=== PATIENT | female | born 1975 | race Caucasian/White ===

== ENCOUNTER 2019-04-06 18:15 | Emergency (ER) | payer MEDICAID, SELFPAY ==
[2019-04-06 18:16] VITALS: BP 164/110; PULSE 81; RESP 16; TEMP 36.1; O2SAT 99; BMI 35.4
--- NOTE | 2019-04-06 18:26 | CT_ITS ---
STUDY: CT ABDOMEN AND PELVIS WITHOUT CONTRAST REASON FOR EXAM: Female, 44 years old. Nausea and vomiting. RADIATION DOSAGE (If Supplied By Facility): CTDIvol = ( 17.16 ) mGy, DLP = ( 806.04 ) mGycm TECHNIQUE: Transaxial images were obtained from the dome of the diaphragm to the symphysis pubis without oral contrast, and without intravenous contrast. Sagittal and coronal images were reconstructed. Individualized dose optimization techniques were used for this CT. COMPARISON: None. FINDINGS: Evaluation of the abdominal viscera is limited in the absence of intravenous contrast. The visualized lung bases are clear. The visualized portions of the heart and pericardium are within normal limits. The patient is status post cholecystectomy. The liver demonstrates an unremarkable unenhanced appearance. The spleen is normal in size. The pancreas demonstrates an unremarkable unenhanced appearance. The adrenal glands are within normal limits. There are no renal or ureteral stones. There is no hydronephrosis. Normal visualized stomach. There is no bowel obstruction or inflammation. The appendix is visualized and appears normal. The aorta is normal in caliber. There is no abdominal or pelvic free air, free fluid, fluid collection or lymphadenopathy. There are no destructive osseous lesions. CT/Abdomen/Pelvis without Cont IMPRESSION: No acute abdominal or pelvic pathology demonstrated on this noncontrast CT. Electronically Signed: Dominic Davalos, at 19:48 EDT Tel , Service support ,
--- NOTE | 2019-04-06 18:34 | ED.VISSUMM ---
- ER Visit Summary Date of Service: 04/06/19 Chief Complaint: [Nausea and vomiting] History of Present Illness: The patient is a 44 F [presents to the emergency department with 3-day history of nausea and vomiting. Patient complaining of dry heaves. Patient complaining of diffuse abdominal discomfort mostly to the lower abdomen however. Patient's also had some discomfort in the epigastric region. Patient denies any diarrhea. She denies any fever. She denies urinary symptoms. Her last menstrual period was about 2 weeks ago although her periods are irregular and it is not unusual for her to go this long between periods. Patient has history of migraines and does not have a headache at this time. Patient has history of x2 and cholecystectomy.] Physical Examination: [HEENT-PERRLA, EOMI. Cranial nerves II through XII grossly intact. TMs clear. Mucous membranes moist. No adenopathy. Cardiovascular-regular rate and rhythm without murmur or ectopy Lungs-clear to auscultation, chest wall stable without crepitus or subcu emphysema Abdomen-normoactive bowel sounds, soft. Patient has some mild diffuse tenderness over lower abdomen. Patient has some mild discomfort in the epigastric region. There is no rebound, rigidity, cranial signs. Extremities-intact ?4, normal range of motion, normal pulses, atraumatic] Test Results: [CBC with differential showed a white count 7.5, hemoglobin 14, hematocrit 43, placed 256. Chemistries unremarkable. Lipase was 70. Urinalysis normal. hCG was negative. CT scan of the flank showed nothing acute.] Emergency Department Course and Treatment: [Patient was given Zofran 4 mg IV as well as Bentyl 20 mg IM. She continued complaints of mild nausea and was given Phenergan 12.5 mill grams IV.] Treatment Plan: [Patient will be given a prescription for Phenergan and advised to follow-up with her primary care physician within next 3 to 5 days.] Disposition: [Discharged home stable condition] Impression: [Abdominal pain Nausea vomiting] This note was generated with [employer] dictation software. It may contain incorrect words, spelling, and punctuation that were not noted in review of the chart prior to signing ED Disposition - Plan for ED Patient: Referrals: Ashly Doyle MD [Primary Care Provider] -
[2019-04-06] MEDS: 0.9% Normal Saline 1,000 ML 125 ML IV (18:38)
[2019-04-06] MEDS: Dicyclomine 20 MG/2 ML Vial IM (18:38)
[2019-04-06] MEDS: Ondansetron 4 MG/2 ML Vial IV (18:47)
[2019-04-06 19:03] LABS: Absolute Lymphocyte Count 1.26 X10^3/uL (0.83-4.51); Absolute Neutrophil Count 5.6 X10^3/uL (2.0-7.7); Basophil# 0.04 X10^3/uL; Basophil% 0.5 % (0-1); Eosinophil# 0.04 X10^3/uL; Eosinophils% 0.5 % (0-5); Hematocrit 42.8 % (37-47); Hemoglobin 13.9 g/dL (12.0-15.0); Lymphocyte # 1.26 X10^3/ul (4.0); Lymphocyte % 16.9 % (19-41); Mean Corp Hgb Conc 32.5 g/dL (32-36); Mean Corpuscular Hgb 28.6 pg (27.0-32.0); Mean Corpuscular Volume 88.1 fL (81-99); Mean Platelet Vol. 9.4 fl (6.2-12.0); Monocyte# 0.49 X10^3/uL; Monocyte% 6.6 % (0-10); NRBC Flagged by Analyzer 0 % (0-5); Neutrophil % 75.1 % (47-70); Platelet Count 256 K/mm3 (150-450); RBC Distribution Width CV 15.3 % (11.6-14.6); RBC Distribution Width SD 49.9 fl (35.1-43.9); Red Blood Count 4.86 M/mm3 (4.2-5.4); White Blood Count 7.5 K/mm3 (4.4-11.0)
[2019-04-06 19:09] LABS: Internal QC Validated? YES +Cl - CLEAR BKGD; Pregnancy, Serum, hCG Quali. NEGATIVE Negative
[2019-04-06 19:14] LABS: Anion Gap 3 (5-15); BUN 11 mg/dL (7-18); BUN/Creat Ratio 13.5 RATIO (10-20); Calcium,Total 9.4 mg/dL (8.5-10.1); Chloride 104 mmol/L (98-107); Creatinine, Serum 0.82 mg/dL (0.55-1.02); EST Glomerular Filtration Rate 81 mL/min (>60); Est Glom Filt Rate - Afr Amer 98 mL/min (>60); Estimated Creatinine Clearance 73.18 ml/min; Glucose 92 mg/dL (74-106); Lipase 70 U/L (73-393); Potassium 3.8 mmol/L (3.5-5.1); Sodium Level 136 mmol/L (136-145)
[2019-04-06 19:17] VITALS: RESP 16
[2019-04-06 20:32] LABS: Mucous, Urine 0 SEEN /hpf (<or=2+); Red Blood Cells-Urine 0 SEEN /hpf (0-5)
[2019-04-06 20:34] LABS: Color, Urine Yellow (Yellow); Glucose, Dipstick Normal (Normal); Ketone-Dipstick Negative (Negative); Leukocyte Esterase-Dipstick 100 /ul (Negative); Nitrite-Dipstick Negative (Negative); Occult Blood-Urine Negative /ul (Negative); Protein-Dipstick Negative (Negative); Urine Bilirubin Dipstick Negative (Negative); Urine Clarity Clear (Clear); Urine Urobilinogen Normal (Normal)
[2019-04-06 20:40] LABS: White Blood Cells 0-5 SEEN /hpf (0-5)
[2019-04-06 20:41] LABS: Bacteria RARE /hpf (None Seen); Squamous Epithelial Cells - UA 0-5 SEEN /hpf (5-10); Trichomonas 0-5 SEEN /hpf (None Seen)
--- NOTE | 2019-04-06 20:47 | ED.DEP ---
ED Disposition - Plan for ED Patient: Instructions: VOMITING (7y-Adult), ABDOMINAL PAIN, Unknown Cause, (Female) Prescriptions: proMETHazine tablet [Phenergan] 25 mg PO Q6H PRN PRN #10 tab PRN Reason: Nausea Prescription Printed Referrals: Ashly Doyle MD [Primary Care Provider] - 3-5 Days
[2019-04-06] MEDS: proMETHazine 25 MG/ML Syringe 12.5 MG IV (20:55)
[2019-04-06 21:01] VITALS: BP 159/61; PULSE 69; RESP 20; O2SAT 100
== END 2019-04-06 21:03 | disposition home or self-care (01) ==
LOC: ED 18:40
PROVIDERS: Emergency Provider Emergency Medicine; Family Provider Internal Medicine; PCP Internal Medicine
DX: R10.30 Lower abdominal pain, unspecified (principal); R10.13 Epigastric pain; R11.2 Nausea with vomiting, unspecified; N92.6 Irregular menstruation, unspecified; G43.909 Migraine, unspecified, not intractable, without status migrainosus; Z90.49 Acquired absence of other specified parts of digestive tract; Z72.0 Tobacco use
CPT/HCPCS: 74176; 80048; 81001; 83690; 84703; 85025; 96361; 96372; 96374; 96375; 99285; J7030; J2405

== ENCOUNTER 2023-04-18 19:33 | Emergency (ER) | payer SELFPAY ==
[2023-04-18 19:33] VITALS: BP 192/108; PULSE 95; RESP 26; TEMP 37.1; O2SAT 96; BMI 32.8
--- NOTE | 2023-04-18 20:23 | CT_ITS ---
INDICATION: Lower abdominal pain EXAMINATION: CT ABDOMEN AND PELVIS WITH CONTRAST - CT Abdomen And Pelvis W/ Contrast Injection TECHNIQUE: Helically acquired images were obtained of the abdomen and pelvis following IV contrast. A radiation dose optimization technique was used for this scan. IV Contrast dosage and agent: 100 cc [id number] Oral contrast: None. COMPARISON: 04/06/2019 FINDINGS: LOWER CHEST: Lung bases are clear. No cardiomegaly or pericardial effusion. LIVER: Homogeneous. No focal mass. GALLBLADDER AND BILIARY TREE: Cholecystectomy. No intra- or extrahepatic biliary ductal dilation. PANCREAS: No focal cystic or solid mass. SPLEEN: Normal size without focal cystic or solid mass. ADRENAL GLANDS: No nodules. KIDNEYS AND URETERS: Normal renal size and position. No hydronephrosis. PERITONEUM: No ascites or free air. BOWEL: Normal appendix. No stomach or bowel distension. No focal inflammatory change. LYMPH NODES: No enlarged mesenteric or retroperitoneal lymph nodes. VESSELS: Aorta is non-dilated. URINARY BLADDER: Minimally distended. REPRODUCTIVE ORGANS: No pelvic masses. Essure device in place. ABDOMINAL WALL: No discrete abdominal or pelvic wall hernia. BONES: No acute or aggressive abnormality. CT/Abdomen/Pelvis W IV Cont ONLY IMPRESSION: No acute findings in the abdomen or pelvis. Electronically Signed: Edgar Castillo MD at 21:27 EDT ,
[2023-04-18 20:33] LABS: Absolute Lymphocyte Count 1.86 X10^3/uL (0.83-4.51); Absolute Neutrophil Count 6.7 X10^3/uL (2.0-7.7); Basophil# 0.07 X10^3/uL; Basophil% 0.7 % (0-1); Eosinophil# 0.03 X10^3/uL; Eosinophils% 0.3 % (0-5); Hematocrit 41.1 % (37-47); Hemoglobin 13.7 g/dL (12.0-15.0); Lymphocyte # 1.86 X10^3/ul (0.83-4.51); Lymphocyte % 19.9 % (19-41); Mean Corp Hgb Conc 33.3 g/dL (32-36); Mean Corpuscular Hgb 30.8 pg (27.0-32.0); Mean Corpuscular Volume 92.4 fL (81-99); Monocyte# 0.61 X10^3/uL; Monocyte% 6.5 % (0-10); NRBC Flagged by Analyzer 0 % (0-5); Neutrophil # 6.74 X10^3/uL (2.7-7.7); Neutrophil % 72.2 % (47-70); Platelet Count 249 K/mm3 (150-450); RBC Distribution Width CV 13.9 % (11.6-14.6); RBC Distribution Width SD 47.3 fl (35.1-43.9); Red Blood Count 4.45 M/mm3 (4.2-5.4); White Blood Count 9.4 K/mm3 (4.4-11.0)
[2023-04-18] MEDS: Morphine 4 MG/ML Syringe IV (20:33)
[2023-04-18] MEDS: Ondansetron 4 MG/2 ML Vial IV (20:33)
[2023-04-18 20:47] LABS: Bacteria 0 SEEN /hpf (None Seen); Mucous, Urine 0 SEEN /hpf (<or=2+); Squamous Epithelial Cells - UA 0 SEEN /hpf (5-10); White Blood Cells 0 SEEN /hpf (0-5)
[2023-04-18 20:51] LABS: AST(SGOT) 21 U/L (15-37); Alanine Aminotransfer ALT/SGPT 27 U/L (13-56); Alkaline Phosphatase 78 U/L (45-117); Anion Gap 6 (5-15); BUN 15 mg/dL (7-18); Calcium,Total 9.8 mg/dL (8.5-10.1); Chloride 104 mmol/L (98-107); Creatinine, Serum 0.88 mg/dL (0.55-1.02); EST Glomerular Filtration Rate 73 mL/min (>60); Est Glom Filt Rate - Afr Amer 88 mL/min (>60); Estimated Creatinine Clearance 65.38 ml/min; Globulin 4.2 g/dL (2.2-4.2); Glucose 88 mg/dL (74-106); Potassium 3.5 mmol/L (3.5-5.1); Protein, Total 8.2 g/dL (6.4-8.2); Sodium Level 140 mmol/L (136-145)
[2023-04-18 20:53] LABS: Valproic Acid (Depakene) Level < 3 ug/mL (50-100)
[2023-04-18 20:53] LABS: Color, Urine Yellow (Yellow); Glucose, Dipstick Normal (Normal); Ketone-Dipstick Negative (Negative); Leukocyte Esterase-Dipstick Negative /ul (Negative); Nitrite-Dipstick Negative (Negative); Occult Blood-Urine 25 /ul (Negative); Protein-Dipstick Negative (Negative); Urine Bilirubin Dipstick Negative (Negative); Urine Clarity Sl. Cloudy (Clear); Urine Urobilinogen Normal (Normal)
[2023-04-18 20:59] LABS: Amorphous Sediment 1+; Red Blood Cells-Urine 0-5 SEEN /hpf (0-5)
--- NOTE | 2023-04-25 08:41 | EX.ED.DYSGE1 ---
HPI History of Present Illness Chief Complaint: General Illness Narrative Narrative: 48-year-old female stating she feels generally unwell. She had some lower back pain and some constipation. She admits to fever and chills as well at home. She states onset was last Sunday. She is not doing any better. Presents for evaluation. [facility] Medical History Back pain Hypertension Migraine headache Mood disorder Tobacco abuse Medical History no medical history Home Medications ondansetron 4 mg disintegrating tablet 4 mg PO Q8H PRN PRN Nausea #10 tabs 04/18/23 [Rx Last Taken Unknown] ondansetron HCl 8 mg tablet 8 mg PO Q8H PRN nausea and vomiting #10 tabs 04/24/23 [Rx Last Taken Unknown] pantoprazole 40 mg tablet,delayed release (Protonix) 40 mg PO DAILY #30 tabs 04/24/23 [Rx Last Taken Unknown] Allergy/AdvReac Type Severity Reaction Status Date / Time naproxen AdvReac Nausea Verified 04/22/23 20:42 Social History Smoking Status: Current some day smoker tobacco type: cigarettes alcohol intake: never substance use type: does not use ROS ROS ED Constitutional Constitutional ED: Reports chills and fever(s) Eyes Eyes: Denies change in vision or diplopia ENT ENT ED: Denies rhinorrhea or sore throat Cardiovascular Cardiovascular: Denies chest pain or palpitations Respiratory/Chest Respiratory/Chest: Denies cough Gastrointestinal Gastrointestinal: Reports abdominal pain, nausea and vomiting Genitourinary Genitourinary ED: Denies dysuria or hematuria Musculoskeletal Musculoskeletal: Reports back pain and myalgias Integumentary Denies abscess Neurologic Neurologic: Reports headache(s); Denies paresthesias or weakness Psychiatric Psychiatric: Denies anxiety or depression Endocrine Endocrinology: Denies cold intolerance or heat intolerance Hematologic/Lymphatic Hematologic/Lymphatic: Reports systems reviewed and no addt'l complaints, except as documented EXAM Physical Exam Const General Appearance ED: NAD; Negative for pallor HEENT Reports moist mucous membranes Eyes PERRL and EOMs intact bilaterally Chest Wall inspection of chest normal Resp normal respiratory effort Effort and Inspection: Negative for retractions Cardio regular rate and regular rhythm GI normal to inspection, nondistended, normoactive bowel sounds Back/Spine no CVA tenderness Neuro oriented x3 and CN's II-XII intact bilaterally Sensorium / Orientation: alert Motor Exam: strength 5/5 throughout Psych mental status grossly normal Skin no rashes or lesions noted General Skin Exam: Negative for jaundice or pallor MDM MDM MDM Narrative Medical decision making narrative: Patient presenting with lower back pain, generalized weakness, fevers and chills. Differential includes viral syndrome, UTI, diverticulitis, colitis. Patient medicated and lab work was obtained. Lab work all within normal limits. UA negative for infection. There is ketones. Patient had CT of the abdomen pelvis with IV contrast which was negative. At this point I feel the patient can be discharged home. Return precautions were discussed. Impression: 1. Fever?chills 2. Abdominal pain 3. Nausea/vomit Radiography Diagnostic Testing: Clinical Impression(s) from Imaging Studies Abdomen/Pelvis CT 04/18/23 20:23 IMPRESSION: No acute findings in the abdomen or pelvis. Electronically Signed: Edgar Castillo MD at 21:27 EDT Reading Location ID and State: [address] [place] [address] Tel , Service support , Discharge Plan Triage Chief Complaint: General Illness ED Provider: Chase Roberto Dx/Rx/DC Orders Instructions: ED Gastroenteritis, Viral (Adult) Prescriptions: New ondansetron 4 mg tablet,disintegrating 4 mg PO Q8H PRN PRN (Reason: Nausea) Qty: 10 0RF No Action pantoprazole [Protonix] 40 mg tablet,delayed release (DR/EC) 40 mg PO DAILY Qty: 30 0RF ondansetron HCl 8 mg tablet 8 mg PO Q8H PRN (Reason: nausea and vomiting) Qty: 10 0RF Primary Care Provider: Ashly Doyle Referrals: Ashly Doyle MD [Primary Care Provider] - Disposition Disposition: Home, Self Care Discharge Date/Time: 04/18/23 22:07
== END 2023-04-18 22:07 | disposition home or self-care (01) ==
PROVIDERS: Emergency Provider Student in an Organized Health Care Education/Training Program; PCP Internal Medicine; Visit Provider Student in an Organized Health Care Education/Training Program
DX: R10.9 Unspecified abdominal pain (principal); I10 Essential (primary) hypertension; M54.50 Low back pain, unspecified; R50.9 Fever, unspecified; R11.2 Nausea with vomiting, unspecified; F17.210 Nicotine dependence, cigarettes, uncomplicated
CPT/HCPCS: 74177; 80053; 80164; 81001; 85025; 87428; 96374; 96375; 99282; Q9967; A4216; J2405

== ENCOUNTER 2023-04-22 20:42 | Inpatient (IN) | payer SELFPAY ==
[2023-04-22 20:43] VITALS: BP 172/111; PULSE 85; RESP 16; TEMP 36.6; O2SAT 100
[2023-04-22 21:53] LABS: Absolute Neutrophil Count 10.8 X10^3/uL (2.0-7.7); Basophil# 0.08 X10^3/uL; Basophil% 0.6 % (0-1); Eosinophil# 0.08 X10^3/uL; Eosinophils% 0.6 % (0-5); Hematocrit 41.8 % (37-47); Hemoglobin 14.4 g/dL (12.0-15.0); Lymphocyte % 15.9 % (19-41); Mean Corp Hgb Conc 34.4 g/dL (32-36); Mean Corpuscular Hgb 32.1 pg (27.0-32.0); Mean Corpuscular Volume 93.1 fL (81-99); Mean Platelet Vol. 10.2 fl (6.2-12.0); Monocyte# 0.66 X10^3/uL; Monocyte% 4.8 % (0-10); NRBC Flagged by Analyzer 0 % (0-5); Neutrophil # 10.75 X10^3/uL (2.7-7.7); Neutrophil % 77.7 % (47-70); Platelet Count 265 K/mm3 (150-450); RBC Distribution Width CV 14.2 % (11.6-14.6); RBC Distribution Width SD 48.9 fl (35.1-43.9); Red Blood Count 4.49 M/mm3 (4.2-5.4); White Blood Count 13.8 K/mm3 (4.4-11.0)
--- NOTE | 2023-04-22 22:19 | RAD_ITS ---
INDICATION: NG Insertion EXAMINATION/TECHNIQUE: X-RAY - XR Abdomen 1 View COMPARISON: Chest x-ray September 30, 2013. FINDINGS: Abdominal x-ray centered at the diaphragm shows the nasogastric tube tip at the level of the diaphragm. Consider advancing 13 cm to get the proximal side port into the stomach. Surgical clips right upper quadrant from cholecystectomy. Visualized lungs are clear. Upper abdomen shows no abnormal soft tissue calcifications, free air, abnormally distended air-filled bowel loops or other evidence of acute intra-abdominal pathology. Lateral curvature lumbar spine, convex right. No fracture or focal osseous lesion. Prominent right-sided osteophytes T11-12 level. RAD/Abdomen Single View (Portable) IMPRESSION: Enteric tube tip not within the stomach. Advanced 13 cm to have the proximal side port in the stomach. Electronically Signed: Ambrosio Kuhn DO at 22:50 EDT ,
[2023-04-22 22:26] LABS: Internal QC Validated? YES +Cl - CLEAR BKGD; Pregnancy, Serum, hCG Quali. NEGATIVE Negative
--- NOTE | 2023-04-22 22:29 | EX.ED.DYSGE1 ---
HPI History of Present Illness Chief Complaint: Nausea/Vomiting Detail of Chief Complaint: Vomiting blood Informant: patient Onset/Context/Timing Onset: Today Context: Sudden Onset Timing: Intermittent Quality: Patient reports she is vomited several times and is noted brown bloody coff Location: Upper GI Current Severity: Moderate Maximum Severity: Moderate Worsened by: Patient apparently is on an anti-inflammatory Relieved by: Nothing Associated Symptoms Associated Symptoms: Heartburn Narrative Narrative: Patient is a 48-year-old woman who presents with nausea and vomiting. She was seen on April 06 for nausea and vomiting. She denies black or maroon-colored stool. She states every time that she has vomited it has a dark brown appearance and has what appears to be coffee grounds. She also complains of epigastric pain. She states she does not feel well. She denies fever, chills night sweats. She denies headache, visual, ocular auditory symptoms. She does report chronic rhinorrhea. She denies sore throat. She does have a slight cough. The cough is nonproductive. She has a chronic cough. She has no chest pain. She denies back pain. She denies dysuria, frequency, urgency or hematuria. She is not on an anticoag. Prior similar symptoms: Yes (Nausea and vomiting April 06 without blood) Recent Illness/Hospitalization: Yes [facility] Home Medications divalproex 500 mg tablet,delayed release (Depakote) 400 mg PO QHS 09/30/13 [History Last Taken Unknown] gabapentin 600 mg tablet (Neurontin) 1,200 mg PO QHS 09/30/13 [History Last Taken Unknown] paroxetine HCl 10 mg tablet (Paxil) 30 mg PO DAILY 09/30/13 [History Last Taken Unknown] propranolol 120 mg capsule,24 hr,extended release (Inderal LA) 120 mg PO QHS 09/30/13 [History Last Taken Unknown] baclofen 20 mg tablet 20 mg PO BID 08/02/14 [History Last Taken Unknown] duloxetine 20 mg capsule,delayed release 20 mg PO DAILY 08/02/14 [History Last Taken Unknown] ondansetron 8 mg disintegrating tablet (Zofran ODT) 8 mg PO Q8H PRN PRN Nausea ##6 08/02/14 [Rx Last Taken Unknown] sumatriptan succinate 100 mg tablet (Imitrex) 100 mg PO .X1 PRN PRN Headache 08/02/14 [History Last Taken Unknown] tramadol 50 mg tablet 50 mg PO BID 08/02/14 [History Last Taken Unknown] dicyclomine 20 mg tablet (Bentyl) 20 mg PO 4X/DAY PRN Abdominal Pain #20 tabs 09/01/14 [Rx Last Taken Unknown] promethazine 25 mg rectal suppository (Promethegan) 25 mg RECTAL Q6H PRN PRN Nausea ##6 09/01/14 [Rx Last Taken Unknown] promethazine 25 mg tablet 25 mg PO Q6H PRN PRN Nausea ##10 09/01/14 [Rx Last Taken Unknown] Ibuprofen [Motrin] 800 mg PO TID #30 tabs 09/28/14 [Rx Last Taken Unknown] hydrocodone-acetaminophen 5-325mg 5mg-325mg 1 - 2 tab PO Q4H PRN PRN Pain ##20 09/28/14 [Rx Last Taken Unknown] penicillin V potassium 500 mg tablet 500 mg PO 4X/DAY #40 tabs 09/28/14 [Rx Last Taken Unknown] promethazine 25 mg rectal suppository (Promethegan) 25 mg RECTAL Q6H PRN PRN Nausea ##20 11/02/14 [Rx Last Taken Unknown] promethazine 25 mg tablet 25 mg PO Q6H PRN PRN Nausea ##20 11/02/14 [Rx Last Taken Unknown] tramadol 50 mg tablet 50 mg PO Q4H PRN PRN Pain #20 tabs 06/27/15 [Rx Last Taken Unknown] promethazine 25 mg tablet 25 mg PO Q6H PRN PRN Nausea #10 tabs 04/06/19 [Rx Last Taken Unknown] ondansetron 4 mg disintegrating tablet 4 mg PO Q8H PRN PRN Nausea #10 tabs 04/18/23 [Rx Last Taken Unknown] Allergy/AdvReac Type Severity Reaction Status Date / Time naproxen AdvReac Nausea Verified 04/22/23 20:42 Social History Smoking Status: Current some day smoker tobacco type: cigarettes ROS ROS ED Constitutional Constitutional ED: Denies chills, fever(s), subjective, sweats or weight loss Eyes Eyes: Denies blurry vision or diplopia ENT ENT ED: Reports rhinorrhea; Denies ear pain or sore throat Cardiovascular Cardiovascular: Denies chest pain, orthopnea, palpitations or paroxysmal nocturnal dyspnea Respiratory/Chest Respiratory/Chest: Reports cough; Denies dyspnea, dyspnea on exertion, orthopnea or paroxysmal nocturnal dyspnea Gastrointestinal Gastrointestinal: Reports abdominal pain, nausea, vomiting and other Details: Coffee-ground appearing emesis ; Denies constipation, diarrhea or melena Genitourinary Genitourinary ED: Denies dysuria, hematuria or urinary frequency Musculoskeletal Musculoskeletal: Denies arthralgias or back pain Integumentary Denies abscess or rash Neurologic Neurologic: Denies headache(s), paresthesias or weakness Psychiatric Psychiatric: Denies anxiety or depression Endocrine Endocrinology: Denies cold intolerance or heat intolerance Hematologic/Lymphatic Hematologic/Lymphatic: Reports systems reviewed and no addt'l complaints, except as documented EXAM Physical Exam Const Vital Signs: 04/22/23 20:43 Temperature 98 F Temperature Source Temporal Pulse Rate 85 Respiratory Rate 16 Blood Pressure 172/111 H Blood Pressure Mean 131 Pulse Ox 100 Positive well nourished and well developed General Appearance ED: well developed and NAD; Negative for cyanotic, diaphoretic or pallor HEENT Reports moist mucous membranes HEENT Narrative: Head is normocephalic and atraumatic. Ears normal. Posterior pharynx unremarkable. Nares positive with slight clear drainage Eyes PERRL and EOMs intact bilaterally General Eye ED: Negative for pale conjunctiva or scleral icterus Neck no lymphadenopathy, supple and no JVD Chest Wall inspection of chest normal and palpation of chest normal Resp normal respiratory effort and clear to auscultation bilaterally Cardio regular rate, regular rhythm, S1 normal heart sound, S2 normal heart sound and no murmurs GI non-distended and no masses; Negative for non-tender or hepatosplenomegaly Inspection: Negative for abdominal distention Auscultation: hypoactive bowel sounds Palpation: soft and tender epigastric Back/Spine no CVA tenderness Thoracic Spine / Upper Back: Negative for thoracic spinal tenderness Lumbar Spine / Lower Back: Negative for lumbar spinal tenderness Extremity normal to inspection General Extremety ED: Negative for edema or tenderness General Extremity: Negative for edema Neuro oriented x3, CN's II-XII intact bilaterally and no sensory deficits noted Sensorium / Orientation: alert Psych Mood & Affect: depressed Skin no rashes or lesions noted, no wounds and skin turgor normal Skin Narrative: Patient is slightly diaphoretic. General Skin Exam: Negative for jaundice or pallor MDM MDM MDM Narrative Medical decision making narrative: Patient has emesis bag with coffee-ground emesis noted. Will drop NG. Patient still has coffee-ground bloody material noted. X-ray reveals NG needs to be inserted another 10 cm. Patient received IV Protonix. CBC and BMP were obtained as well as type and screen. was done per nurse protocol which was negative. Lab Data Attestation: I reviewed the patient's lab results. Lab results narrative: CBC is remarked for slight elevated white count which may be due to stress and vomiting. H&H is at patient's baseline Labs: Laboratory Results - last 24 hr 04/22/23 21:42 WBC 13.8 H RBC 4.49 Hgb 14.4 Hct 41.8 MCV 93.1 MCH 32.1 H MCHC 34.4 RDW Std Deviation 48.9 H RDW Coeff of Samson 14.2 Plt Count 265 MPV 10.2 Immature Gran % (Auto) 0.400 Neut % (Auto) 77.7 H Lymph % (Auto) 15.9 L Frederick % (Auto) 4.8 Eos % (Auto) 0.6 Baso % (Auto) 0.6 Absolute Neuts (auto) 10.8 H Absolute Lymphs (auto) 2.20 Nucleated RBC % 0 Sodium 137 Potassium 4.2 Chloride 106 Carbon Dioxide 23.0 Anion Gap 8 BUN 15 Creatinine 0.80 Est GFR (MDRD) Af Amer 99 Est GFR (MDRD) Non-Af 82 BUN/Creatinine Ratio 18.8 Glucose 118 H Calcium 9.9 Total Bilirubin 0.40 AST 48 H ALT 27 Alkaline Phosphatase 71 Total Protein 8.1 Albumin 3.8 Globulin 4.3 H Albumin/Globulin Ratio 0.9 Serum , Qual NEGATIVE Radiography Diagnostic Testing: Clinical Impression(s) from Imaging Studies KUB X-Ray 04/22/23 22:19 IMPRESSION: Enteric tube tip not within the stomach. Advanced 13 cm to have the proximal side port in the stomach. Electronically Signed: Ambrosio Kuhn DO at 22:50 EDT , Treatment and Re-Evaluation :: This patient has coffee-ground emesis. will consult hospitalist for admission and for GI to see in the morning. Discharge Plan Triage Chief Complaint: Nausea/Vomiting ED Provider: Russell Brandon Dx/Rx/DC Orders Clinical Impression: Acute upper GI bleed, Nausea & vomiting, Hypertension Prescriptions: No Action gabapentin [Neurontin] 600 MG tablet 1,200 mg PO QHS paroxetine HCl [Paxil] 10 MG tablet 30 mg PO DAILY divalproex [Depakote] 500 MG tablet,delayed release (DR/EC) 400 mg PO QHS propranolol [Inderal LA] 120 MG capsule,extended release 24 hr 120 mg PO QHS tramadol 50 MG tablet 50 mg PO BID baclofen 20 MG tablet 20 mg PO BID duloxetine 20 MG capsule 20 mg PO DAILY sumatriptan succinate [Imitrex] 100 MG tablet 100 mg PO .X1 PRN PRN (Reason: Headache) ondansetron [Zofran ODT] 8 MG tablet,disintegrating 8 mg PO Q8H PRN PRN (Reason: Nausea) Qty: 6 0RF promethazine [Promethegan] 25 MG suppository 25 mg RECTAL Q6H PRN PRN (Reason: Nausea) Qty: 6 0RF dicyclomine [Bentyl] 20 MG tablet 20 mg PO 4X/DAY PRN (Reason: Abdominal Pain) Qty: 20 0RF promethazine 25 MG tablet 25 mg PO Q6H PRN PRN (Reason: Nausea) Qty: 10 0RF hydrocodone-acetaminophen 1 TABLET tablet 1 - 2 tab PO Q4H PRN PRN (Reason: Pain) Qty: 20 0RF penicillin V potassium 500 MG tablet 500 mg PO 4X/DAY Qty: 40 0RF Ibuprofen [Motrin] 800 MG tablet 800 mg PO TID Qty: 30 0RF promethazine 25 MG tablet 25 mg PO Q6H PRN PRN (Reason: Nausea) Qty: 20 0RF promethazine [Promethegan] 25 MG suppository 25 mg RECTAL Q6H PRN PRN (Reason: Nausea) Qty: 20 0RF tramadol 50 MG tablet 50 mg PO Q4H PRN PRN (Reason: Pain) Qty: 20 0RF promethazine 25 MG tablet 25 mg PO Q6H PRN PRN (Reason: Nausea) Qty: 10 0RF ondansetron 4 mg tablet,disintegrating 4 mg PO Q8H PRN PRN (Reason: Nausea) Qty: 10 0RF Primary Care Provider: Ashly Doyle Referrals: Ashly Doyle MD [Primary Care Provider] -
[2023-04-22 22:35] LABS: ALB/GLOB Ratio 0.9 RATIO (0.9-2.4); AST(SGOT) 48 U/L (15-37); Alanine Aminotransfer ALT/SGPT 27 U/L (13-56); Albumin, Serum 3.8 g/dL (3.2-5.0); Alkaline Phosphatase 71 U/L (45-117); Anion Gap 8 (5-15); BUN 15 mg/dL (7-18); BUN/Creat Ratio 18.8 RATIO (10-20); Calcium,Total 9.9 mg/dL (8.5-10.1); Chloride 106 mmol/L (98-107); EST Glomerular Filtration Rate 82 mL/min (>60); Est Glom Filt Rate - Afr Amer 99 mL/min (>60); Globulin 4.3 g/dL (2.2-4.2); Glucose 118 mg/dL (74-106); Potassium 4.2 mmol/L (3.5-5.1); Protein, Total 8.1 g/dL (6.4-8.2); Sodium Level 137 mmol/L (136-145)
--- NOTE | 2023-04-22 23:00 | CON.PCM.GI_ITS ---
HPI Consult Data Date of Consult: 04/22/23 HPI Narrative Reason for Consultation: Hematemesis HPI Narrative: AILYN MCINTYRE, is a 48 F who presents with intractable nausea and vomiting. She said after multiple episodes of nausea vomiting she developed several episodes of hematemesis. She states for about a week now she has had epigastric pain that radiates to her back and some nausea. She states she slowly progressed to the point where she developed vomiting today. She stated she started vomiting today at 7 PM and has vomited several times. She was not able to tell me how many times. She denies any alcohol use or drug use. She does smoke about half to 1 pack cigarettes daily. She has a history of previous abdominal pain with nausea and vomiting but had been doing well up until recently. She denied any melena or hematochezia. She denies any fever or chills. She has no headache and complains of chronic rhinorrhea but denies any other somatic symptoms. She is not anticoagulated at baseline. She had some similar symptoms earlier this month around April 06 but it abated and she had no hematemesis then. She had a CT in the ER on 04/06 04/18 and 04/22 that did not show any acute abnormalities. Vital signs on presentation show her temperature at 98, blood pressure is 147/115, heart rate was 70, respiratory rate is 16 and oxygen saturations are 100% on room air. CBC shows a mild leukocytosis with a white count of 13.8 and a left shift on her differential. Her hemoglobin is 14.4 which appears to be close to her baseline. Platelet counts are normal. Coags are normal her chemistry panel is overall unremarkable. AST is mildly elevated at 48 and ALT is normal. Bilirubin is normal. Her urine is positive for THC. [facility] Medical History (Updated 04/23/23 @ 11:[address] Yuan Amaro, DO) Back pain Hypertension Migraine headache Mood disorder Tobacco abuse Home Medications ondansetron 4 mg disintegrating tablet 4 mg PO Q8H PRN PRN Nausea #10 tabs 04/18/23 [Rx Last Taken Unknown] Allergy/AdvReac Type Severity Reaction Status Date / Time naproxen AdvReac Nausea Verified 04/22/23 20:42 Family History no significant family his Surgical History no surgical history Social History (Updated 04/22/23 @ 23:[address] Tameka Landers, DO) Smoking Status: Current some day smoker tobacco type: cigarettes alcohol intake: never substance use type: does not use ROS Constitutional Constitutional: Denies anorexia, change in weight, chills, fatigue, fever(s), malaise, night sweats, weakness or other Eyes Eyes: Denies blurry vision, change in eye color, change in vision, discharge from eye(s), double vision, erythema, eye pain, loss of vision or other ENT HEENT: Reports nasal discharge; Denies abnormal hearing, dysphagia, ear pain, epistaxis, headache(s), hearing loss, nasal congestion, post nasal drip, sinus pressure, sore throat or other Cardiovascular Cardiovascular: Denies chest pain, claudication, dyspnea on exertion, edema, lightheadedness, orthopnea, palpitations, paroxysmal nocturnal dyspnea, rapid heart rate, syncope or other Respiratory/Chest Respiratory/Chest: Reports cough; Denies dyspnea, excessive phlegm production, hemoptysis, productive cough, shortness of breath at rest, shortness of breath with exertion, wheezing or other Gastrointestinal Gastrointestinal: Reports abdominal pain, coffee ground emesis, dyspepsia, hematemesis, nausea and vomiting; Denies constipation, diarrhea, hematochezia, loose stools, melena or other Genitourinary Genitourinary: Denies burning urination, difficulty urinating, dysuria, hematuria, nocturia, urinary frequency, urinary hesitancy, urinary incontinence, urinary urgency or other Musculoskeletal Musculoskeletal: Reports back pain; Denies arthralgias, joint pain, joint stiffness, joint swelling, myalgias, neck pain or other Neurologic Neurologic: Denies abnormal gait, abnormal speech, confusion, disequilibrium, dizziness, focal weakness, headache(s), numbness, paresthesias, seizure-like activity, seizures, syncope, tingling, tremor(s) or other Psychiatric Psychiatric: Reports anxiety and depression; Denies homicidal ideation, suicidal ideation or other Endocrine Endocrinology: Denies change in body appearance, cold intolerance, excessive sweating, heat intolerance, polydipsia, polyuria or other Hematologic/Lymphatic Hematologic/Lymphatic: Denies anemia, easy bleeding, easy bruising, lymphadenopathy or other Allergic/Immunologic Allergic/Immunologic: Denies rhinitis, hives, eczemia, asthma or other Physical Exam Const alert, oriented x3 and well nourished; Negative for no apparent distress, average body habitus or healthy appearing General Appearance: cooperative HEENT normocephalic, head/scalp atraumatic, hearing grossly normal bilaterally and moist oral mucous membranes HEENT Narrative: Edentulous, Mallampati 2-3, no thrush Eyes PERRL, EOMs intact bilaterally and conjunctivae normal Eyes Narrative: No scleral icterus Neck no lymphadenopathy, supple and no JVD Neck Narrative: Trachea midline, no thyroid enlargement Resp normal respiratory effort, no retractions, no use of accessory muscles and clear to auscultation bilaterally Resp Narrative: Diminished but clear Auscultation: Negative for rales, rhonchi or wheezes Cardio regular rate, regular rhythm, S1 normal heart sound, S2 normal heart sound, no murmurs, no rub, no gallops and no clicks GI normal to inspection, nondistended, normoactive bowel sounds and soft to palpation GI Narrative: Tenderness in the epigastrium and also tenderness diffusely with her reaction being quite significant to very light palpation of her entire abdominal wall Extremity no clubbing, cyanosis or edema Extremity Narrative: Pedal pulses are 2+ Skin no rashes or lesions noted, no wounds, skin turgor normal, no jaundice, no petechiae and no mottling Neuro oriented x3, CN's II-XII intact bilaterally, moves all extremities and no focal motor deficits Speech: speech normal Psych Psych Narrative: Patient seems very anxious and agitated Lab / Micro Data 04/23/23 05:25 04/23/23 05:25 Labs: Laboratory Results - last 24 hr 04/22/23 21:42: WBC 13.8 H, RBC 4.49, Hgb 14.4, Hct 41.8, MCV 93.1, MCH 32.1 H, MCHC 34.4, RDW Std Deviation 48.9 H, RDW Coeff of Samson 14.2, Plt Count 265, MPV 10.2, Immature Gran % (Auto) 0.400, Neut % (Auto) 77.7 H, Lymph % (Auto) 15.9 L, [place] % (Auto) 4.8, Eos % (Auto) 0.6, Baso % (Auto) 0.6, Absolute Neuts (auto) 10.8 H, Absolute Lymphs (auto) 2.20, Nucleated RBC % 0, Sodium 137, Potassium 4.2, Chloride 106, Carbon Dioxide 23.0, Anion Gap 8, BUN 15, Creatinine 0.80, Est GFR (MDRD) Af Amer 99, Est GFR (MDRD) Non-Af 82, BUN/Creatinine Ratio 18.8, Glucose 118 H, Calcium 9.9, Total Bilirubin 0.40, AST 48 H, ALT 27, Alkaline Phosphatase 71, Total Protein 8.1, Albumin 3.8, Globulin 4.3 H, Albumin/Globulin Ratio 0.9, Lipase 80 H, Serum , Qual NEGATIVE 04/22/23 22:25: Blood Type A POSITIVE, Antibody Screen NEGATIVE 04/22/23 23:55: Hgb 13.9, PT 13.0, INR 1.0 04/22/23 23:56: Urine Color Yellow, Urine Clarity Clear, Urine pH 8.0, Ur Specific [place] 1.015, Urine Protein 30 H, Urine Glucose (UA) Normal, Urine Ketones 150 A*, Urine Occult Blood 25 H, Urine Nitrite Negative, Urine Bilirubin Negative, Urine Urobilinogen Normal, Ur Leukocyte Esterase Negative, Urine RBC 0-5 SEEN, Urine WBC 0-5 SEEN, Ur Squamous Epith Cells 0-5 SEEN, Amorphous Sediment 2+, Urine Bacteria 1+, Urine Mucus 0 SEEN, Urine Opiates Screen NEGATIVE, Urine Methadone Screen NEGATIVE, Ur Barbiturates Screen NEGATIVE, Ur P hencyclidine Scrn NEGATIVE, Ur Amphetamines Screen NEGATIVE, MDMA (Ecstasy) Screen NEGATIVE, U Benzodiazepines Scrn NEGATIVE, Urine Cocaine Screen NEGATIVE, U Cannabinoids Screen POSITIVE H, Ur Drug Screen Comment 04/23/23 05:25: WBC 9.6, RBC 4.35, Hgb 13.5, Hct 40.7, MCV 93.6, MCH 31.0, MCHC 33.2, RDW Std Deviation 48.0 H, RDW Coeff of Samson 14.0, Plt Count 254, MPV 10.4, Immature Gran % (Auto) 0.300, Neut % (Auto) 83.7 H, Lymph % (Auto) 12.7 L, [place] % (Auto) 3.0, Eos % (Auto) 0.0, Baso % (Auto) 0.3, Absolute Neuts (auto) 8.0 H, Absolute Lymphs (auto) 1.21, Nucleated RBC % 0, Sodium 140, Potassium 3.5, Chloride 108 H, Carbon Dioxide 25.0, Anion Gap 7, BUN 12, Creatinine 0.69, Estim Creat Clear Calc 87.04, Est GFR (MDRD) Af Amer 117, Est GFR (MDRD) Non-Af 97, BUN/Creatinine Ratio 17.3, Glucose 112 H, Calcium 9.1, Phosphorus 3.1, Magnesium 1.6, Total Bilirubin 0.40, AST 24, ALT 23, Alkaline Phosphatase 66, Total Protein 7.2, Albumin 3.4, Globulin 3.8, Albumin/Globulin Ratio 0.9 Micro: Microbiology 04/22/23 23:45 Gastric Fluid/Contents Gastric Occult Blood - Final Occult Blood Positive Radiology Impression KUB X-Ray 04/22/23 22:19 IMPRESSION: Enteric tube tip not within the stomach. Advanced 13 cm to have the proximal side port in the stomach. Electronically Signed: Ambrosio Kuhn DO at 22:50 EDT , Abdomen/Pelvis CT 04/22/23 23:16 IMPRESSION: 1. No acute intra-abdominal abnormality. 2. Small hiatal hernia. 3. Previous cholecystectomy. 4. Mild colonic diverticulosis without evidence for acute diverticulitis. 5. No findings of small bowel obstruction. Electronically Signed: Rafael Zuñiga MD at 23:59 EDT , Assessment & Plan Assessment/Plan (1) Hematemesis: QUALIFIERS: Nausea presence: with nausea Qualified Code(s): K92.0 - Hematemesis (2) Acute upper GI bleed: (3) Nausea & vomiting: QUALIFIERS: Vomiting type: hematemesis Qualified Code(s): K92.0 - Hematemesis PLAN: Plan 48-year-old with intractable nausea vomiting resulting in hematemesis. Differential diagnosis for recurrent vomiting does include cyclic vomiting syndrome, gastroparesis, peptic ulcer disease, erosive esophagitis, marijuana hyperemesis. She should undergo an upper endoscopy to evaluate her upper GI tract. Differential diagnosis for upper GI bleed includes erosive esophagitis, Zara-Grimm tear, peptic ulcer disease, daily Darian lesion. She was explained alternatives, risk, benefits include not withstanding bleeding, infection, s epsis, perforation, need for emergent and . She have an ASA of 3. Recommend scopolamine patch 1.5 mg every 72 hour, Compazine rectal suppository, Xanax 0.5 mg 3 times daily and azithromycin 500 mg daily x7 days Charges/Coding Visit Charges Inpatient E&M: 90482 Init Hosp L3
--- NOTE | 2023-04-22 23:02 | HP.PCM.HOS_ITS ---
HPI - General General Date of Admission: 04/22/23 Date of Service: 04/22/23 Chief Complaint: Intractable nausea vomiting/epigastric pain/hematemesis HPI Narrative AILYN MCINTYRE, is a 48 F who presented to the emergency department at [facility] on 04/22/2023 with a chief complaint of intractable nausea vomiting and hematemesis. Patient states for about a week now she has had epigastric pain that radiates to her back and some nausea. She states she slowly progressed to the point where she developed vomiting today. She stated she started vomiting today at 7 PM and has vomited several times. She was not able to tell me how many times. She denies any alcohol use or drug use. She does smoke about half to 1 pack cigarettes daily. She has a history of previous abdominal pain with nausea and vomiting but had been doing well up until recently. She denied any melena or hematochezia. She denies any fever or chills. She has no headache and complains of chronic rhinorrhea but denies any other somatic symptoms. She is not anticoagulated at baseline. She had some similar symptoms earlier this month around April 06 but it abated and she had no hematemesis then. Vital signs on presentation show her temperature at 98, blood pressure is 147/115, heart rate was 70, respiratory rate is 16 and oxygen saturations are 100% on room air. CBC shows a mild leukocytosis with a white count of 13.8 and a left shift on her differential. Her hemoglobin is 14.4 which appears to be close to her baseline. Platelet counts are normal. Coags are pending. Her chemistry panel is overall unremarkable. AST is mildly elevated at 48 and ALT is normal. Bilirubin is normal. test is negative. Type and screen were performed and she is a positive with a negative antibody screen. NG tube was placed and per the emergency department physician she did have coffee-ground emesis was streaked with blood that was bright red however in the time my evaluation she had pulled the NG out stating that it was making her nausea worse and she did not like it. I did discuss with her that if she has ongoing nausea we will need to put it back down. She was given a Protonix bolus and we will continue to drip on the floor. [facility] Medical History (Updated 04/22/23 @ 23:[address] Tameka Anshul, DO) Back pain Hypertension Migraine headache Mood disorder Tobacco abuse Home Medications divalproex 500 mg tablet,delayed release (Depakote) 400 mg PO QHS 09/30/13 [History Last Taken Unknown] gabapentin 600 mg tablet (Neurontin) 1,200 mg PO QHS 09/30/13 [History Last Taken Unknown] paroxetine HCl 10 mg tablet (Paxil) 30 mg PO DAILY 09/30/13 [History Last Taken Unknown] propranolol 120 mg capsule,24 hr,extended release (Inderal LA) 120 mg PO QHS 09/30/13 [History Last Taken Unknown] baclofen 20 mg tablet 20 mg PO BID 08/02/14 [History Last Taken Unknown] duloxetine 20 mg capsule,delayed release 20 mg PO DAILY 08/02/14 [History Last Taken Unknown] ondansetron 8 mg disintegrating tablet (Zofran ODT) 8 mg PO Q8H PRN PRN Nausea ##6 08/02/14 [Rx Last Taken Unknown] sumatriptan succinate 100 mg tablet (Imitrex) 100 mg PO .X1 PRN PRN Headache 08/02/14 [History Last Taken Unknown] tramadol 50 mg tablet 50 mg PO BID 08/02/14 [History Last Taken Unknown] dicyclomine 20 mg tablet (Bentyl) 20 mg PO 4X/DAY PRN Abdominal Pain #20 tabs 09/01/14 [Rx Last Taken Unknown] promethazine 25 mg rectal suppository (Promethegan) 25 mg RECTAL Q6H PRN PRN Nausea ##6 09/01/14 [Rx Last Taken Unknown] promethazine 25 mg tablet 25 mg PO Q6H PRN PRN Nausea ##10 09/01/14 [Rx Last Taken Unknown] Ibuprofen [Motrin] 800 mg PO TID #30 tabs 09/28/14 [Rx Last Taken Unknown] hydrocodone-acetaminophen 5-325mg 5mg-325mg 1 - 2 tab PO Q4H PRN PRN Pain ##20 09/28/14 [Rx Last Taken Unknown] penicillin V potassium 500 mg tablet 500 mg PO 4X/DAY #40 tabs 09/28/14 [Rx Last Taken Unknown] promethazine 25 mg rectal suppository (Promethegan) 25 mg RECTAL Q6H PRN PRN Nausea ##20 11/02/14 [Rx Last Taken Unknown] promethazine 25 mg tablet 25 mg PO Q6H PRN PRN Nausea ##20 11/02/14 [Rx Last Taken Unknown] tramadol 50 mg tablet 50 mg PO Q4H PRN PRN Pain #20 tabs 06/27/15 [Rx Last Taken Unknown] promethazine 25 mg tablet 25 mg PO Q6H PRN PRN Nausea #10 tabs 04/06/19 [Rx Last Taken Unknown] ondansetron 4 mg disintegrating tablet 4 mg PO Q8H PRN PRN Nausea #10 tabs 04/18/23 [Rx Last Taken Unknown] Allergy/AdvReac Type Severity Reaction Status Date / Time naproxen AdvReac Nausea Verified 04/22/23 20:42 no significant family history no surgical history Social History (Updated 04/22/23 @ 23:[address] Tameka Landers, DO) Smoking Status: Current some day smoker tobacco type: cigarettes alcohol intake: never substance use type: does not use ROS Constitutional Constitutional: Denies anorexia, change in weight, chills, fatigue, fever(s), malaise, night sweats, weakness or other Eyes Eyes: Denies blurry vision, change in eye color, change in vision, discharge from eye(s), double vision, erythema, eye pain, loss of vision or other ENT HEENT: Reports nasal discharge; Denies abnormal hearing, dysphagia, ear pain, epistaxis, headache(s), hearing loss, nasal congestion, post nasal drip, sinus pressure, sore throat or other Cardiovascular Cardiovascular: Denies chest pain, claudication, dyspnea on exertion, edema, lightheadedness, orthopnea, palpitations, paroxysmal nocturnal dyspnea, rapid heart rate, syncope or other Respiratory/Chest Respiratory/Chest: Reports cough; Denies dyspnea, excessive phlegm production, hemoptysis, productive cough, shortness of breath at rest, shortness of breath with exertion, wheezing or other Gastrointestinal Gastrointestinal: Reports abdominal pain, coffee ground emesis, dyspepsia, hematemesis, nausea and vomiting; Denies constipation, diarrhea, hematochezia, loose stools, melena or other Genitourinary Genitourinary: Denies burning urination, difficulty urinating, dysuria, hematuria, nocturia, urinary frequency, urinary hesitancy, urinary incontinence, urinary urgency or other Musculoskeletal Musculoskeletal: Reports back pain; Denies arthralgias, joint pain, joint stiffness, joint swelling, myalgias, neck pain or other Neurologic Neurologic: Denies abnormal gait, abnormal speech, confusion, disequilibrium, dizziness, focal weakness, headache(s), numbness, paresthesias, seizure-like activity, seizures, syncope, tingling, tremor(s) or other Psychiatric Psychiatric: Reports anxiety and depression; Denies homicidal ideation, suicidal ideation or other Endocrine Endocrinology: Denies change in body appearance, cold intolerance, excessive sweating, heat intolerance, polydipsia, polyuria or other Hematologic/Lymphatic Hematologic/Lymphatic: Denies anemia, easy bleeding, easy bruising, lymphaden opathy or other Allergic/Immunologic Allergic/Immunologic: Denies rhinitis, hives, eczemia, asthma or other Vital Signs Vital Signs Vital Signs: 04/22/23 20:43 Temperature 98 F Temperature Source Temporal Pulse Rate 85 Respiratory Rate 16 Blood Pressure 172/111 H Blood Pressure Mean 131 Pulse Ox 100 Physical Exam Const alert, oriented x3 and well nourished; Negative for no apparent distress, average body habitus or healthy appearing Constitutional Narrative: Obese, middle-aged, white female, writhing around in the bed leaning out as if she is going to fall out stating she is doing so trying to feel better, appears much older than stated age, uncomfortable appearing but nontoxic appearing General Appearance: cooperative HEENT normocephalic, head/scalp atraumatic, hearing grossly normal bilaterally and moist oral mucous membranes HEENT Narrative: Edentulous, Mallampati 2-3, no thrush Eyes PERRL, EOMs intact bilaterally and conjunctivae normal Eyes Narrative: No scleral icterus Neck no lymphadenopathy, supple and no JVD Neck Narrative: Trachea midline, no thyroid enlargement Resp normal respiratory effort, no retractions, no use of accessory muscles and clear to auscultation bilaterally Resp Narrative: Diminished but clear Auscultation: Negative for rales, rhonchi or wheezes Cardio regular rate, regular rhythm, S1 normal heart sound, S2 normal heart sound, no murmurs, no rub, no gallops and no clicks GI normal to inspection, nondistended, normoactive bowel sounds and soft to palpation GI Narrative: Tenderness in the epigastrium and also tenderness diffusely with her reaction being quite significant to very light palpation of her entire abdominal wall Extremity no clubbing, cyanosis or edema Extremity Narrative: Pedal pulses are 2+ Skin no rashes or lesions noted, no wounds, skin turgor normal, no jaundice, no petechiae and no mottling Neuro oriented x3, CN's II-XII intact bilaterally, moves all extremities and no focal motor deficits Speech: speech normal Psych Psych Narrative: Patient seems very anxious and agitated Results Lab / Micro Data 04/22/23 21:42 04/22/23 21:42 Labs: Laboratory Results - last 24 hr 04/22/23 21:42: WBC 13.8 H, RBC 4.49, Hgb 14.4, Hct 41.8, MCV 93.1, MCH 32.1 H, MCHC 34.4, RDW Std Deviation 48.9 H, RDW Coeff of Samson 14.2, Plt Count 265, MPV 10.2, Immature Gran % (Auto) 0.400, Neut % (Auto) 77.7 H, Lymph % (Auto) 15.9 L, [place] % (Auto) 4.8, Eos % (Auto) 0.6, Baso % (Auto) 0.6, Absolute Neuts (auto) 1 0.8 H, Absolute Lymphs (auto) 2.20, Nucleated RBC % 0, Sodium 137, Potassium 4.2, Chloride 106, Carbon Dioxide 23.0, Anion Gap 8, BUN 15, Creatinine 0.80, Est GFR (MDRD) Af Amer 99, Est GFR (MDRD) Non-Af 82, BUN/Creatinine Ratio 18.8, Glucose 118 H, Calcium 9.9, Total Bilirubin 0.40, AST 48 H, ALT 27, Alkaline Phosphatase 71, Total Protein 8.1, Albumin 3.8, Globulin 4.3 H, Albumin/Globulin Ratio 0.9, Serum , Qual NEGATIVE Radiology Impression KUB X-Ray 04/22/23 22:19 IMPRESSION: Enteric tube tip not within the stomach. Advanced 13 cm to have the proximal side port in the stomach. Electronically Signed: Ambrosio Kuhn DO at 22:50 EDT , Assessment & Plan Assessment/Plan (1) Acute upper GI bleed: (2) Hematemesis: (3) Nausea & vomiting: (4) Leukocytosis: (5) Epigastric pain: PLAN: Plan Hematemesis/suspected upper GI bleed -With significant nausea and vomiting today could be Zara-Grimm tear -Hemodynamically stable -NG tube was placed however the patient pulled out the emergency department citing that it made her feel worse -Check CT abdomen pelvis -Protonix bolus given will continue drip on floor -Serial hemoglobins every 6 hours -N.p.o. -IV fluids with LR at 75 cc/h -Antiemetics with Zofran and if not effective Compazine -Continue NG tube for now--> Gastroccult is pending -GI consultation is pending Nausea and vomiting -Etiology is unclear -Patient has history of issues with nausea and vomiting -Continue antiemetics as ordered if not effective could transition to IV Haldol as needed -GI consultation -Check UDS -We will check enteric panel to rule out gastroenteritis however patient is not currently having any diarrhea Epigastric pain -Check lipase -Check noncontrasted CT of the abdomen pelvis Leukocytosis -Likely real active and may be related to mild dehydration however renal function and serum bicarb are at baseline -Repeat CBC in a.m. History of migraine headaches -Continue home as needed medication Chronic back pain -We will continue home medications once can be verified Obesity -BMI is 32.4 -Recommend weight loss -Complicates treatment, prognosis, outcomes Depression/anxiety -Patient somewhat histrionic on presentation -We will continue home antidepressants once med list has been verified Tobacco abuse -Smokes approximately 1/2 to 1 pack a day -Nicotine patch available -Recommend cessation DVT prophylaxis -SCDs -Chemoprophylaxis contraindicated with suspicion for acute GI bleed CODE STATUS -Full code Charges/Coding Visit Charges Inpatient E&M: 16318 Init Hosp L2
--- NOTE | 2023-04-22 23:04 | ED.RN ---
2300: Patient pulled out her NG tube. Dr. Brandon notified.
--- NOTE | 2023-04-22 23:16 | CT_ITS ---
EXAM: CT ABDOMEN AND PELVIS WITHOUT INTRAVENOUS CONTRAST CLINICAL INDICATION: nausea and vomiting TECHNIQUE: Helically acquired images were obtained of the abdomen and pelvis without intravenous contrast. This CT exam was performed using one or more of the following dose reduction techniques: automated exposure control, adjustment of the mA and/or kV according to patient size, and/or use of iterative reconstruction technique. RADIATION DOSE: Total DLP: 825.96 mGy-cm. COMPARISON: Nonenhanced abdominal pelvic CT of 04/18/2023. FINDINGS: LOWER THORAX: Visualized lung bases are clear except for incidental calcified granuloma within the right lower lobe. No coronary artery calcification is visualized. No significant pericardial effusion. Small hiatal hernia is demonstrated. ABDOMEN: LIVER: Unremarkable. Homogeneous. GALLBLADDER AND BILE DUCTS: Cholecystectomy clips are again noted. No iliac ductal dilatation or calcified common duct stone identified. PANCREAS: Unremarkable. No focal cystic mass. SPLEEN: Unremarkable. Normal size without focal cystic or solid mass. ADRENALS: Unremarkable. No nodules. KIDNEYS AND URETERS: Unremarkable. Normal renal size and position. No hydronephrosis. No renal or obstructing ureteral stones. STOMACH AND BOWEL: Stomach is decompressed. No periduodenal inflammatory changes or distended small bowel loops. A few sigmoid diverticula are present without evidence for acute diverticulitis. Mild thickening of the colonic wall of the rectosigmoid junction noted on the axial images, most likely due to lack of distention. There is no pericolonic stranding to indicate an acute inflammatory process. PELVIS: APPENDIX: No evidence of acute appendicitis. BLADDER: Unremarkable. REPRODUCTIVE: Normal size uterus. Fallopian tube occlusive devices in place. No adnexal mass. ABDOMEN and PELVIS: INTRAPERITONEAL SPACE: Unremarkable. No ascites or other fluid collection. No free air. BONES/JOINTS: Lower thoracic disc spaces show mild degenerative narrowing with large marginal osteophytes. Rudimentary disc space noted at S1/2. Severe lower lumbar facet arthritis is present with grade 1 anterolisthesis of L5 on S1. Thecal sac is effaced and shows a triangular configuration at L5/S1 due to the anterolisthesis and facet hypertrophy; thecal sac measures 5 mm in AP diameter at this level. No suspicious lytic or blastic abnormality. SOFT TISSUES: Unremarkable. No discrete abdominal or pelvic wall hernia. VASCULATURE: Minimally calcific abdominal aorta and its branches. No AAA. Abdominal aorta is non-dilated. LYMPH NODES: Unremarkable. No enlarged lymph nodes. CT/Abdomen/Pelvis without Cont IMPRESSION: 1. No acute intra-abdominal abnormality. 2. Small hiatal hernia. 3. Previous cholecystectomy. 4. Mild colonic diverticulosis without evidence for acute diverticulitis. 5. No findings of small bowel obstruction. Electronically Signed: Rafael Zuñiga MD at 23:59 EDT ,
[2023-04-22 23:17] VITALS: BP 147/115; PULSE 70; RESP 16; RESP 18; TEMP 36.7; O2SAT 100; BMI 32.3
[2023-04-23] VITALS (10 sets, daily range): BP systolic 117–181; BP diastolic 68–94; PULSE 47–91; RESP 16–20; TEMP 36.3–37.2; O2SAT 98–100; BMI 30.7
[2023-04-23 00:06] LABS: Lipase 80 U/L (13-75)
[2023-04-23 00:10] LABS: Hemoglobin 13.9 g/dL (12.0-15.0)
[2023-04-23 00:13] LABS: Mucous, Urine 0 SEEN /hpf (<or=2+)
--- NOTE | 2023-04-23 00:22 | ED.RN ---
tyron from lab called with a positive gastric occult blood.
[2023-04-23 00:30] LABS: Color, Urine Yellow (Yellow); Glucose, Dipstick Normal (Normal); Leukocyte Esterase-Dipstick Negative /ul (Negative); Nitrite-Dipstick Negative (Negative); Occult Blood-Urine 25 /ul (Negative); Protein-Dipstick 30 mg/dl (Negative); Specific Gravity, Urine 1.015 (1.002-1.030); Urine Bilirubin Dipstick Negative (Negative); Urine Clarity Clear (Clear); Urine Urobilinogen Normal (Normal)
[2023-04-23 00:32] LABS: Ketone-Dipstick 150 mg/dl (Negative)
[2023-04-23 00:37] LABS: Red Blood Cells-Urine 0-5 SEEN /hpf (0-5); Squamous Epithelial Cells - UA 0-5 SEEN /hpf (5-10); White Blood Cells 0-5 SEEN /hpf (0-5)
[2023-04-23 00:38] LABS: Amorphous Sediment 2+; Bacteria 1+ /hpf (None Seen)
[2023-04-23 00:42] LABS: Amphetamine Urine VISTA NEGATIVE (<1000 ng/mL); Barbiturate Urine VISTA NEGATIVE (< 200 ng/mL); Benzodiazepine Urine VISTA NEGATIVE (< 200 ng/mL); Cocaine Urine VISTA NEGATIVE (< 300 ng/mL); Ecstacy Urine VISTA NEGATIVE (< 500 ng/mL); Methadone Urine VISTA NEGATIVE (< 300 ng/mL); PCP Urine VISTA NEGATIVE (< 25 ng/mL); THC Urine VISTA POSITIVE (< 50 ng/mL); Vista UDS pH Range 8
[2023-04-23] MEDS: Morphine 2 MG/ML Syringe IV ×5 (00:59→21:35)
[2023-04-23] MEDS: Ondansetron 4 MG/2 ML Vial IV ×2 (00:59→10:25)
[2023-04-23] MEDS: Lactated Ringers 1,000 ML 100 ML IV ×3 (01:42→19:40)
[2023-04-23] MEDS: proCHLORPERazine 10 MG/2 ML Vial 5 MG IV (01:50)
[2023-04-23] MEDS: 0.9% Saline Lock 10 ML Syringe IV ×5 (01:51→17:56)
[2023-04-23 06:27] LABS: Absolute Lymphocyte Count 1.21 X10^3/uL (0.83-4.51); Basophil# 0.03 X10^3/uL; Basophil% 0.3 % (0-1); Hematocrit 40.7 % (37-47); Hemoglobin 13.5 g/dL (12.0-15.0); Lymphocyte # 1.21 X10^3/ul (0.83-4.51); Lymphocyte % 12.7 % (19-41); Mean Corp Hgb Conc 33.2 g/dL (32-36); Mean Corpuscular Volume 93.6 fL (81-99); Mean Platelet Vol. 10.4 fl (6.2-12.0); Monocyte# 0.29 X10^3/uL; NRBC Flagged by Analyzer 0 % (0-5); Neutrophil % 83.7 % (47-70); Platelet Count 254 K/mm3 (150-450); Red Blood Count 4.35 M/mm3 (4.2-5.4); White Blood Count 9.6 K/mm3 (4.4-11.0)
[2023-04-23 07:00] LABS: ALB/GLOB Ratio 0.9 RATIO (0.9-2.4); AST(SGOT) 24 U/L (15-37); Alanine Aminotransfer ALT/SGPT 23 U/L (13-56); Albumin, Serum 3.4 g/dL (3.2-5.0); Alkaline Phosphatase 66 U/L (45-117); Anion Gap 7 (5-15); BUN 12 mg/dL (7-18); BUN/Creat Ratio 17.3 RATIO (10-20); Calcium,Total 9.1 mg/dL (8.5-10.1); Chloride 108 mmol/L (98-107); Creatinine, Serum 0.69 mg/dL (0.55-1.02); EST Glomerular Filtration Rate 97 mL/min (>60); Est Glom Filt Rate - Afr Amer 117 mL/min (>60); Estimated Creatinine Clearance 87.04 ml/min; Globulin 3.8 g/dL (2.2-4.2); Glucose 112 mg/dL (74-106); Magnesium 1.6 mg/dL (1.6-2.6); Phosphorus 3.1 mg/dL (2.5-4.9); Potassium 3.5 mmol/L (3.5-5.1); Protein, Total 7.2 g/dL (6.4-8.2); Sodium Level 140 mmol/L (136-145)
[2023-04-23] MEDS: Lactated Ringers 1,000 ML 15 ML IV (11:33)
--- NOTE | 2023-04-23 12:15 | EGD_PTH ---
PATIENT: AILYN MCINTYRE LOC: [facility] U#:[id number] AGE/SX: 48/F ROOM: [facility] RE04/22/[address]: Dr. Adolfo uSltana DO : 1975 BED: 1 DIS: 04/24/2023 SPEC #: [id number] RECD: 04/23/23 13:53 STATUS: CARISSA GÓMEZ #: [id number] CYNTHIA: 04/23/23 12:[address]: Yuan Amaro DEPT: SURGICAL PATHOLOGY RECD BY: Fatimah Johnston ENTERED: 04/24/23 07:45 SP TYPE: EGD BIOPSY [facility] DR: DO Dr. Ashly Friedman MD Dr. Mark Tereletsky, DO Tissues: A - Duodenum, NOS B - Gastric mucous membrane C - Gastric mucous membrane Procedures: Surgery Specimen Level IV HEADER OPERATION: EGD with biopsies PRE-OP DIAGNOSIS: Hematemesis, acute upper GI bleed, nausea and vomiting TISSUE SUBMITTED: A - Duodenum biopsy, B - Antrum biopsy for H. pylori and path, C - Gastric cardia biopsy MICROSCOPIC DIAGNOSIS A. Duodenum, biopsy: Fragments of duodenal mucosa, no pathologic diagnosis. B. Antrum, biopsy: Mild gastritis. See microscopic description and comment. C. Gastric cardia, biopsy: Mild gastritis. See microscopic description. SJ:antonio 04/25/2023 COMMENT B. The results of immunohistochemistry for Helicobacter pylori will be reported separately ([id number]). MICROSCOPIC DESCRIPTION Slides are reviewed. B & C. The specimen shows fragments of gastric mucosa with chronic inflammatory cell infiltrates in the lamina propria consisting of lymphocytes and plasma cells, consistent with mild chronic gastritis. Focal mucosal congestion and hemorrhage are also noted. GROSS DESCRIPTION A - Received in fixative is one container labeled with the patient's name and designated duodenum biopsy. The specimen consists of multiple irregular fragments of light nolasco soft tissue that in aggregate measure 1.0 x 0.3 x 0.1 cm. The specimen is totally submitted in one cassette. B - Received in fixative is one container labeled with the patient's name and designated antrum biopsy. The specimen consists of two irregular fragments of light nolasco soft tissue that in aggregate measure 0.8 x 0.3 x 0.1 cm. The specimen is totally submitted in one cassette. C - Received in fixative is one container labeled with the patient's name and designated gastric cardia biopsy. The specimen consists of two irregular fragments of light nolasco soft tissue that in aggregate measure 0.4 x 0.3 x 0.1 cm. The specimen is totally submitted in one cassette. / SJ:rg 04/24/2023 TC: CPT: 55232 x3
--- NOTE | 2023-04-23 12:15 | IMM_PTH ---
PATIENT: AILYN MCINTYRE LOC: [facility] U#:[id number] AGE/SX: 48/F ROOM: [facility] RE04/22/[address]: Dr. Adolfo Sultana DO : 1975 BED: 1 DIS: 04/24/2023 SPEC #: [id number] RECD: 04/24/23 12:47 STATUS: CARISSA REQ #: [id number] CYNTHIA: 04/23/23 12:[address]: Ra Sondrahsaan DEPT: IMMUNOHISTOCHEMISTRY RECD BY: Ana Laura Alan ENTERED: 04/24/23 12:48 SP TYPE: IMMUNO OTHR DR: DO Dr. Ashly Friedman MD Dr. Mark Tereletsky, DO Tissues: B - Stomach, NOS Procedures: H Pylori (initial) PHYSICIAN & INSTITUTION [place] [address] SPECIMEN INFORMATION: Tissue Source: B - Antrum Clinical Info: Hematemesis, acute upper GI bleed, nausea and vomiting Specimen Number: [id number] CPT code: 28680 METHODOLOGY: Deparaffinized sections of prefer/formalin-fixed tissue or PAP/DQ stained slides are incubated with monoclonal/polyclonal antibodies/oligonucleotide probes. Localization is made via biotin free immunoperoxidase method. Appropriate controls are performed and reacted as expected. Results on target cell population are indicated in the following table: RESULTS: ANTIBODY / CLONE RESULT Block B H Pylori (polyclonal) negative These tests were developed and their performance characteristics determined by [facility]. They may not have been cleared or approved by the U.S. Food and Drug Administration. The FDA has determined that such clearance or approval is not necessary. The above immunohistochemical/dualISH markers are ordered and reviewed by the Pathologist. INTERPRETATION: B. Antrum, biopsy: Negative for Helicobacter pylori organisms. SJ:antonoi 04/26/2023
--- NOTE | 2023-04-23 13:10 | OP.CCLET_ITS ---
04/23/2023 Ashly Doyle [address] [place] [address] Re : Upper GI endoscopy procedure for Melissa Mar Dear Dr. Doyle This procedure was performed on Sunday, April 23, 2023. My impressions and recommendations are as follows: Impressions : - Zara-Grimm tear. Injected. Treated with a heater probe. - Small hiatal hernia. - Gastritis. Biopsied. - Acute gastritis with hemorrhage. Biopsied. Treated with a monopolar probe. - Acute duodenitis. Biopsied. Recommendations : - [facility]. - Advance diet as tolerated today. - Continue present medications. - Await pathology results. - Repeat upper endoscopy to check healing. - Gastrin level to screen for Maci-Escamilla syndrome, ESR, CRP, marijuana and cigarette cessation - Scopolamine patch, sulcrafate to eat 3 times daily, Protonix 40 mg twice a day, no NSAIDs My findings are described in the full procedure note, which is enclosed. If I can be of further assistance, please feel free to contact me at . Sincerely, Yuan Amaro, 04/23/2023 1:10:07 PM This report has been signed electronically.
--- NOTE | 2023-04-23 13:10 | OP.EGD_ITS ---
Patient Name: Melissa Mar Procedure Date: 04/23/2023 12:32 PM Date of : 1975 Age: 48 Procedure: Upper GI endoscopy Indications: Dyspepsia, Indigestion, Hematemesis Providers: Yuan Amaro DO Medicines: Monitored Anesthesia Care Patient Profile: This is a 48 year old female. Refer to note in patient chart for documentation of history and physical. Patient has symptoms. Complications: No immediate complications. Procedure: Pre-Anesthesia Assessment: - Prior to the procedure, a History and Physical was performed, and patient medications and allergies were reviewed. The patient is competent. The risks and benefits of the procedure and the sedation options and risks were discussed with the patient. All questions were answered and informed consent was obtained. Patient identification and proposed procedure were verified by the physician in the pre-procedure area. Mental Status Examination: alert and oriented. Airway Examination: normal oropharyngeal airway and neck mobility. Respiratory Examination: clear to auscultation. CV Examination: normal. Prophylactic Antibiotics: The patient does not require prophylactic antibiotics. Prior Anticoagulants: The patient has taken no anticoagulant or antiplatelet agents. After reviewing the risks and benefits, the patient was deemed in satisfactory condition to undergo the procedure. The anesthesia plan was to use monitored anesthesia care (MAC). Immediately prior to administration of medications, the patient was re-assessed for adequacy to receive sedatives. The heart rate, respiratory rate, oxygen saturations, blood pressure, adequacy of pulmonary ventilation, and response to care were monitored throughout the procedure. The physical status of the patient was re-assessed after the procedure. After obtaining informed consent, the endoscope was passed under direct vision. Throughout the procedure, the patient's blood pressure, pulse, and oxygen saturations were monitored continuously. The Endoscope was introduced through the mouth, and advanced to the second part of duodenum. The upper GI endoscopy was accomplished without difficulty. The patient tolerated the procedure well. Scope In: 12:48:16 PM Scope Out: 12:55:06 PM Total Procedure Duration Time 0 hours 6 minutes 50 seconds Findings: A 9 mm bleeding Zara-Grimm tear with stigmata of recent bleeding was found. Area was successfully injected with 5 mL of a 0.1 mg/mL solution of epinephrine for drug delivery. Coagulation for hemostasis using heater probe was successful. Estimated blood loss was minimal. A small hiatal hernia was present. Localized mild inflammation characterized by erosions and erythema was found in the cardia. Biopsies were taken with a cold forceps for Helicobacter pylori testing. Verification of patient identification for the specimen was done. Biopsies were taken with a cold forceps for histology. Verification of patient identification for the specimen was done. Estimated blood loss was minimal. Localized severe inflammation with hemorrhage characterized by congestion (edema), erosions, erythema and friability was found in the gastric antrum. Biopsies were taken with a cold forceps for histology. Verification of patient identification for the specimen was done. Estimated blood loss was minimal. Biopsies were taken with a cold forceps for Helicobacter pylori testing. Verification of patient identification for the specimen was done. Coagulation for hemostasis using monopolar probe was successful. Diffuse moderate inflammation characterized by congestion (edema), erosions and granularity was found in the duodenal bulb, in the first portion of the duodenum and in the second portion of the duodenum. Biopsies were taken with a cold forceps for histology. Verification of patient identification for the specimen was done. Estimated blood loss was minimal. Impression: - Zara-Grimm tear. Injected. Treated with a heater probe. - Small hiatal hernia. - Gastritis. Biopsied. - Acute gastritis with hemorrhage. Biopsied. Treated with a monopolar probe. - Acute duodenitis. Biopsied. Recommendation: - Return patient to [facility] for [facility] care. - Advance diet as tolerated today. - Continue present medications. - Await pathology results. - Repeat upper endoscopy to check healing. - Gastrin level to screen for Maci-Escamilla syndrome, ESR, CRP, marijuana and cigarette cessation - Scopolamine patch, sulcrafate to eat 3 times daily, Protonix 40 mg twice a day, no NSAIDs Procedure Code(s): --- Professional --- 13387, 59, Esophagogastroduodenoscopy, flexible, transoral; with control of bleeding, any method 76605, Esophagogastroduodenoscopy, flexible, transoral; with biopsy, single or multiple 01862, 59,51, Esophagogastroduodenoscopy, flexible, transoral; with directed submucosal injection(s), any substance CPT copyright 2021 [employer]. All rights reserved. The codes documented in this report are preliminary and upon keeler polygraph operator review may be revised to meet current compliance requirements. Yuan Amaro DO 04/23/2023 1:10:07 PM This report has been signed electronically. Number of Addenda: 0 Note Initiated On: 04/23/2023 12:32 PM
[2023-04-23 13:44] LABS: Erythrocyte Sedimentation Rate 37 mm/hr (0-30)
[2023-04-23 13:51] LABS: CPK Total, Creatine Kinase 204 U/L (26-192)
--- NOTE | 2023-04-23 14:43 | CHAPLAIN ---
Type of Pastoral Visit _x__ Initial Visit ___ Follow-up Visit ___ On-call Visit ___ General Patient Visit ___ Spiritual Assessment ___ Family Conference ___ Bereavement ___ Rapid Response ___ Code Blue ___ Other (describe below) Pastoral Care Referral From _x__ Patient ___ Family ___ Nurse ___ Physician ___ Claims Collector ___ Portrait Consultant ___ Other (describe below) Sacrament/Intervention _x__ Active listening ___ Anointing ___ Tenriism ___ Bereavement ___ Communion ___ Karen exploration ___ ___ Life review _x__ Prayer ___ Reconciliation ___ Sacrament of Sick ___ Supportive presence ___ Wedding ___ Other (describe below) Pastoral Comments patient just returned from a procedure and admits to great discomfort and need for sleep; offer of prayer is accepted; best wishes given and left room
--- NOTE | 2023-04-23 15:45 | CASEMGMT ---
Addendum entered by Franco Pena 04/23/23 17:04: Pt stated just previously had [employer] but it was just recently cancelled d/t the renewal letter was sent to an old address and she did not receive it. She states she just sent paperwork in to [employer] last week to have it re-instated. Addendum entered by Franco Pena 04/23/23 17:01: Pt provided w/[facility] info. Original Note: RN?CM?DOG RAISER?CM?to room to meet with patient for initial transition planning/care coordination?assessment.?RN?CM?introduced self and role at [facility].? Pt voices understanding and consents to?assessment?at this time.? Pt resting in bed in no distress at this time.? Pt is A/O at this time and answers all questions appropriately.?? Care providers, pharmacy, and demographics verified/updated at this time. PCP: Dr Doyle. Pt states she has not seen her for about 3 1/2 yrs and she is not sure if she is an active pt of hers any longer. Specialists: none Preferred Pharmacy: [facility] Retail Insurance: No insurance. Pt states someone was in to talk w/her today re: self-pay Prescription Benefit:?none Living Will/HPOA:?Pt does not currently have LW/HCPOA and declines info at this time.? LNOK: 2 adult children, ages 20 and 26. Mother, Skylar Living Arrangements: Lives w/her 20 yr-old son in 2-story apt w/no steps to enter. Pt does okay w/the stairs. Pt is independent w/ADL's and IADL's . Transportation:?Pt states drives self and states no transportation concerns at this time.? DME: ? Denies using any DME and denies needs.? HHC/SNF: No hx of either. No needs identified. Pt wishes to return home and states has no concerns with going home at time of discharge.? Pt smokes 1 PPD and does not drink alcohol. Pt states she has her medical marijuana card. She denies use of other street drugs. CM?to follow for any further discharge planning/needs.? Pt voices no further concerns/needs at this time.? Advised pt to ask for?CM?if any further questions/concerns/needs arise.? Voices understanding. PLAN:??Home Follow for RX cost @ d/c. Hazel BSN?RN?CM
[2023-04-23] MEDS: Scopolamine 1mg/72hr Patch 1 PATCH TD (17:56)
--- NOTE | 2023-04-23 20:33 | PN.HOSP_ITS ---
Reason for Visit Reason for Visit: Diagnoses Elevated white blood cell count, unspecified (04/22/23) Hematemesis (04/22/23) Gastrointestinal hemorrhage, unspecified (04/22/23) Epigastric pain (04/22/23) Nausea with vomiting, unspecified (04/22/23) Subjective Subjective Patient was seen and examined today, she underwent an EGD which showed Zara- Grimm tear, gastritis, and duodenitis. Patient's hemoglobin has remained stable at this time, I will repeat her H&H in the morning, I placed her on IV Protonix and took her off her Protonix drip. Objective Data Objective Data Vital Signs: Vital Signs Temp Pulse Resp BP Pulse Ox O2 Del Method 98.4 F 77 16 147/74 H 99 Room Air 04/23/23 20:03 04/23/23 20:03 04/23/23 20:03 04/23/23 20:03 04/23/23 20:03 04/23/23 20:03 Oxygen Delivery Method Room Air Weight: 81.1 kg Body Mass Index (BMI) 30.7 Intake & Output: Intake and Output for Last 24 Hours 04/21/23 04/22/23 04/23/23 23:59 23:59 23:59 Intake Total 35 / 35 1586.50 / 1586.50 Balance 35 / 35 1586.50 / 1586.50 Lab / Micro Data 04/24/23 05:40 04/23/23 05:25 Labs: Laboratory Results - last 24 hr 04/22/23 21:42: WBC 13.8 H, RBC 4.49, Hgb 14.4, Hct 41.8, MCV 93.1, MCH 32.1 H, MCHC 34.4, RDW Std Deviation 48.9 H, RDW Coeff of Samson 14.2, Plt Count 265, MPV 10.2, Immature Gran % (Auto) 0.400, Neut % (Auto) 77.7 H, Lymph % (Auto) 15.9 L, Blaine % (Auto) 4.8, Eos % (Auto) 0.6, Baso % (Auto) 0.6, Absolute Neuts (auto) 10.8 H, Absolute Lymphs (auto) 2.20, Nucleated RBC % 0, Sodium 137, Potassium 4.2, Chloride 106, Carbon Dioxide 23.0, Anion Gap 8, BUN 15, Creatinine 0.80, Est GFR (MDRD) Af Amer 99, Est GFR (MDRD) Non-Af 82, BUN/Creatinine Ratio 18.8, Glucose 118 H, Calcium 9.9, Total Bilirubin 0.40, AST 48 H, ALT 27, Alkaline Phosphatase 71, Total Protein 8.1, Albumin 3.8, Globulin 4.3 H, Albumin/Globulin Ratio 0.9, Lipase 80 H, Serum , Qual NEGATIVE 04/22/23 22:25: Blood Type A POSITIVE, Antibody Screen NEGATIVE 04/22/23 23:55: Hgb 13.9, PT 13.0, INR 1.0 04/22/23 23:56: Urine Color Yellow, Urine Clarity Clear, Urine pH 8.0, Ur Specific [place] 1.015, Urine Protein 30 H, Urine Glucose (UA) Normal, Urine Ketones 150 A*, Urine Occult Blood 25 H, Urine Nitrite Negative, Urine Bilirubin Negative, Urine Urobilinogen Normal, Ur Leukocyte Esterase Negative, Urine RBC 0-5 SEEN, Urine WBC 0-5 SEEN, Ur Squamous Epith Cells 0-5 SEEN, Amorphous Sediment 2+, Urine Bacteria 1+, Urine Mucus 0 SEEN, Urine Opiates Screen NEGATIVE, Urine Methadone Screen NEGATIVE, Ur Barbiturates Screen NEGATIVE, Ur Phencyclidine Scrn NEGATIVE, Ur Amphetamines Screen NEGATIVE, MDMA (Ecstasy) Screen NEGATIVE, U Benzodiazepines Scrn NEGATIVE, Urine Cocaine Screen NEGATIVE, U Cannabinoids Screen POSITIVE H, Ur Drug Screen Comment 04/23/23 05:25: WBC 9.6, RBC 4.35, Hgb 13.5, Hct 40.7, MCV 93.6, MCH 31.0, MCHC 33.2, RDW Std Deviation 48.0 H, RDW Coeff of Samson 14.0, Plt Count 254, MPV 10.4, Immature Gran % (Auto) 0.300, Neut % (Auto) 83.7 H, Lymph % (Auto) 12.7 L, Blaine % (Auto) 3.0, Eos % (Auto) 0.0, Baso % (Auto) 0.3, Absolute Neuts (auto) 8.0 H, Absolute Lymphs (auto) 1.21, Nucleated RBC % 0, ESR 37 H, Sodium 140, Potassium 3.5, Chloride 108 H, Carbon Dioxide 25.0, Anion Gap 7, BUN 12, Creatinine 0.69, Estim Creat Clear Calc 87.04, Est GFR (MDRD) Af Amer 117, Est GFR (MDRD) Non-Af 97, BUN/Creatinine Ratio 17.3, Glucose 112 H, Calcium 9.1, Phosphorus 3.1, Magnesium 1.6, Total Bilirubin 0.40, AST 24, ALT 23, Alkaline Phosphatase 66, Total Creatine Kinase 204 H, C-React Prot Ext Range 5.70 H, Total Protein 7.2, Albumin 3.4, Globulin 3.8, Albumin/Globulin Ratio 0.9 Micro: Microbiology 04/22/23 23:45 Gastric Fluid/Contents Gastric Occult Blood - Final Occult Blood Positive Radiography Diagnostic Testing: Radiology Impression KUB X-Ray 04/22/23 22:19 IMPRESSION: Enteric tube tip not within the stomach. Advanced 13 cm to have the proximal side port in the stomach. Electronically Signed: Ambrosio Kuhn DO at 22:50 EDT , Abdomen/Pelvis CT 04/22/23 23:16 IMPRESSION: 1. No acute intra-abdominal abnormality. 2. Small hiatal hernia. 3. Previous cholecystectomy. 4. Mild colonic diverticulosis without evidence for acute diverticulitis. 5. No findings of small bowel obstruction. Electronically Signed: Rafael Zuñiga MD at 23:59 EDT , Physical Exam Const alert, oriented x3, no apparent distress, average body habitus and healthy appearing General Appearance: cooperative, well kempt and well developed Orientation / Consciousness: awake, oriented to person, oriented to place and oriented to time HEENT normocephalic, head/scalp atraumatic and moist oral mucous membranes Eyes PERRL, EOMs intact bilaterally and conjunctivae normal Neck supple, no JVD, thyroid normal and no carotid bruits General: trachea midline Resp normal respiratory effort, no retractions, no use of accessory muscles and clear to auscultation bilaterally Auscultation: Negative for rales, rhonchi or wheezes Cardio regular rate, regular rhythm, S1 normal heart sound, S2 normal heart sound, no murmurs, no rub and no gallops GI normal to inspection, nondistended, normoactive bowel sounds, soft to palpation, non-tender and non-distended Extremity no clubbing, cyanosis or edema Skin no rashes or lesions noted General Skin Exam: no breakdown Neuro oriented x3, CN's II-XII intact bilaterally, moves all extremities, no focal motor deficits and no sensory deficits noted Sensorium / Orientation: awake, alert, oriented to person, oriented to place and oriented to time Speech: speech normal Psych affect normal Assessment & Plan Assessment/Plan (1) Abdominal pain: PLAN: Plan 1. Upper GI bleed not requiring blood transfusion secondary to Zara-Grimm tear, gastritis and duodenitis-patient will remain on PPI at this time, she has not required a blood transfusion, H&H will be monitored as needed #2 gastritis/duodenitis/Zara-Grimm tear-again patient is on a PPI Total clinical time spent by myself addressing patient's medical issues, r eviewing all her data, and collaborating with patient's care team: 25 minutes Charges/Coding Visit Charges Inpatient E&M: [id number] [facility] Hosp L1
[2023-04-24] MEDS: Morphine 2 MG/ML Syringe IV ×2 (02:00→05:38)
[2023-04-24 02:13] VITALS: BP 145/83; PULSE 68; RESP 16; TEMP 36.4; O2SAT 99
[2023-04-24] MEDS: Lactated Ringers 1,000 ML 100 ML IV (05:34)
[2023-04-24 06:18] LABS: Hemoglobin 13.6 g/dL (12.0-15.0)
[2023-04-24 08:28] VITALS: BP 141/83; PULSE 61; RESP 17; TEMP 36.8; O2SAT 98
--- NOTE | 2023-04-24 11:41 | DCINST_ITS ---
Discharge Instructions Diet Discharge Diet: No restrictions Activity Discharge Activity: Return to Normal Activity Weight Bearing Status: Full weight bearing Follow Up Care Test Results: Test results from this visit will be discussed in further detail at your follow- up appointment, if applicable. Discharge Plan Admission Admit Date/Time: 04/22/23 22:53 Primary Reason for Your Visit: upper GI bleed Attending Provider: Adolfo Sultana Primary Care Provider: Ashly Doyle Consulting Providers: Tameka Landers Discharge Orders/Prescriptions Prescriptions: New pantoprazole [Protonix] 40 mg tablet,delayed release (DR/EC) 40 mg PO DAILY Qty: 30 0RF ondansetron HCl 8 mg tablet 8 mg PO Q8H PRN (Reason: nausea and vomiting) Qty: 10 0RF No Action ondansetron 4 mg tablet,disintegrating 4 mg PO Q8H PRN PRN (Reason: Nausea) Qty: 10 0RF Referrals / Follow Up: Ashly Doyle MD [Primary Care Provider] - Disposition Disposition (needs filled in before D/C Order can be placed): Home, Self Care
--- NOTE | 2023-04-24 11:55 | PCM.DC.SUM ---
Providers Date of Admission: 04/22/23 Date of Discharge: 04/24/23 Primary Care Physician: Dr. Ashly Doyle MD Consultations 04/23/23 00:47 Consult: Gastroenterology Routine Consulting Provider: [facility] Reason for Consult: UGIB/Hematemesis EMERGENT Consult: No MD Notified: Yes Date Notified: 04/23/23 Time Notified: 06:11 Method of Notification: Text Reason For Visit: UGIB Diagnosis Discharge Diagnosis (1) Hematemesis: Status: Resolved Code(s): K92.0 - Hematemesis Qualifiers: Nausea presence: with nausea Qualified Code(s): K92.0 - Hematemesis (2) Acute upper GI bleed: Status: Resolved Code(s): K92.2 - Gastrointestinal hemorrhage, unspecified (3) Nausea & vomiting: Status: Resolved Code(s): R11.2 - Nausea with vomiting, unspecified Qualifiers: Vomiting type: hematemesis Qualified Code(s): K92.0 - Hematemesis Plan 1. Upper GI bleed not requiring blood transfusion secondary to Zara-Grimm tear, gastritis and duodenitis #2 gastritis/duodenitis/Zara-Grimm tear Medications at Discharge Home Medications ondansetron 4 mg disintegrating tablet 4 mg PO Q8H PRN PRN Nausea #10 tabs 04/18/23 ondansetron HCl 8 mg tablet 8 mg PO Q8H PRN nausea and vomiting #10 tabs 04/24/23 pantoprazole 40 mg tablet,delayed release (Protonix) 40 mg PO DAILY #30 tabs 04/24/23 ondansetron 4 mg disintegrating tablet 4 mg PO Q8H PRN nausea and vomiting 3 days #9 tabs 04/26/23 Hospital Course Operations None Procedures EGD Summary of Care Provided Minutes Spent on Discharge: 30 Hospital Course: This 48-year-old white female was seen in the emergency room with complaints of nausea and vomiting, CBC showed a mild leukocytosis with a white count of 13.8, hemoglobin is 14.4, bilirubin was normal. NG tube was placed per the emergency room physician and patient had some coffee-ground emesis on the gastric drainage streaked with blood. Patient pulled the NG tube out however stating it was making her nausea worse. Patient was given a Protonix bolus and she was admitted to PCU, serial H&H's were obtained but her blood count did not drop. Patient underwent an EGD which showed a Zara-Grimm tear, gastritis, and duodenitis. On 04/24/23, patient was seen and examined: On examination she appeared in good health and spirits, she does not appear to be in any distress. Vital signs as documented. Skin warm and dry and without overt rashes. Neck without JVD, thyroid appears normal, trachea is midline, neck is supple. Lungs clear, normal air movement was noted. Heart exam notable for regular rhythm, normal sounds and absence of murmurs, rubs or gallops. Abdomen unremarkable and without evidence of organomegaly, masses, or abdominal aortic enlargement, bowel sounds are present in all 4 quadrants, no abdominal tenderness was noted. Extremities nonedematous, no cyanosis was noted, no clubbing was noted. Neuro: Cranial nerves II through XII are grossly intact, no focal motor deficits were noted, sensation to light touch and pinprick is intact, motor exam 5/5 throughout. Psych: Patient is alert and oriented x3, she does not appear anxious or depressed, she does not appear agitated. Patient appears stable for discharge home on 04/24/2023. Weight / BMI Weight Weight: 81.1 kg Body Mass Index (BMI) 30.7 ABG / Lab / Microbiology Data 04/24/23 05:40 04/23/23 05:25 Laboratory: Laboratory Results - last 24 hr 04/23/23 05:25: ESR 37 H, Total Creatine Kinase 204 H, C-React Prot Ext Range 5.70 H 04/24/23 05:40: Hgb 13.6, Hct 41.0 Microbiology: Microbiology 04/22/23 23:45 Gastric Fluid/Contents Gastric Occult Blood - Final Occult Blood Positive D/C Instructions Discharge Diet: No restrictions Weight Bearing Status: Full weight bearing Meaningful Use Info Meaningful Use Diagnoses (Choose all that apply): None applicable Discharge Plan Admission Admit Date/Time: 04/22/23 22:53 Primary Reason for Your Visit: upper GI bleed Attending Provider: Adolfo Sultana Primary Care Provider: Ashly Doyle Consulting Providers: Tameka Landers Discharge Orders/Prescriptions Prescriptions: New pantoprazole [Protonix] 40 mg tablet,delayed release (DR/EC) 40 mg PO DAILY Qty: 30 0RF ondansetron HCl 8 mg tablet 8 mg PO Q8H PRN (Reason: nausea and vomiting) Qty: 10 0RF No Action ondansetron 4 mg tablet,disintegrating 4 mg PO Q8H PRN PRN (Reason: Nausea) Qty: 10 0RF ondansetron 4 mg tablet,disintegrating 4 mg PO Q8H PRN (Reason: nausea and vomiting) 3 Days Qty: 9 0RF Referrals / Follow Up: Ashly Doyle MD [Primary Care Provider] - Disposition Disposition (needs filled in before D/C Order can be placed): Home, Self Care Charges/Coding Visit Charges Inpatient E&M: 83853 Subs Hosp L1
--- NOTE | 2023-04-24 15:08 | CASEMGMT ---
Patient has order for discharge. RN CM in to discuss needs at discharge. Patient denies needs at discharge. Patient denied further questions or concerns.
--- NOTE | 2023-04-24 15:20 | PHA.DC.MR.R ---
Pharmacy [place] Med Reconciliation Pharmacy Service has performed discharge medication reconciliation for this patient. Note: Patient is in precautions, attempted to tele-counselor education professor x2 without response. The patient's discharge medication list was reviewed for discrepancies and discrepancies were resolved. Medications at Discharge Home Medications ondansetron 4 mg disintegrating tablet 4 mg PO Q8H PRN PRN Nausea #10 tabs 04/18/23 ondansetron HCl 8 mg tablet 8 mg PO Q8H PRN nausea and vomiting #10 tabs 04/24/23 pantoprazole 40 mg tablet,delayed release (Protonix) 40 mg PO DAILY #30 tabs 04/24/23
[2023-04-24 15:30] VITALS: BP 143/88; PULSE 65; RESP 16; TEMP 36.8; O2SAT 98
--- NOTE | 2023-04-24 16:38 | EX.PCM.PN.GI ---
Subjective Subjective Patient is doing well without any complaints at this time. She denies any nausea denies any chest pain or shortness of breath. She is doing very well with the scopolamine patch and as needed Bentyl. Objective Data Objective Data Vital Signs: Vital Signs Temp Pulse Resp BP Pulse Ox O2 Del Method 98.3 F 65 16 143/88 H 98 Room Air 04/24/23 15:30 04/24/23 15:30 04/24/23 15:30 04/24/23 15:30 04/24/23 15:30 04/24/23 15:30 Oxygen Delivery Method Room Air Weight: 178 lb 12.718 oz Body Mass Index (BMI) 30.7 Intake & Output: Intake and Output for Last 24 Hours 04/22/23 04/23/23 04/24/23 23:59 23:59 23:59 Intake Total 35 / 35 1696.50 / 1696.50 2441.67 / 2441.67 Balance 35 / 35 1696.50 / 1696.50 2441.67 / 2441.67 Lab / Micro Data 04/24/23 05:40 04/23/23 05:25 Labs: Laboratory Results - last 24 hr 04/24/23 05:40: Hgb 13.6, Hct 41.0 Micro: Microbiology 04/22/23 23:45 Gastric Fluid/Contents Gastric Occult Blood - Final Occult Blood Positive Assessment & Plan Assessment/Plan (1) Hematemesis: QUALIFIERS: Nausea presence: with nausea Qualified Code(s): K92.0 - Hematemesis (2) Acute upper GI bleed: (3) Nausea & vomiting: QUALIFIERS: Vomiting type: hematemesis Qualified Code(s): K92.0 - Hematemesis PLAN: Plan 48-year-old with intractable nausea vomiting resulting in hematemesis. Differential diagnosis for recurrent vomiting does include cyclic vomiting syndrome, gastroparesis, peptic ulcer disease, erosive esophagitis, marijuana hyperemesis. She should undergo an upper endoscopy to evaluate her upper GI tract. Differential diagnosis for upper GI bleed includes erosive esophagitis, Zara-Grimm tear, peptic ulcer disease, daily Darian lesion. She was explained alternatives, risk, benefits include not withstanding bleeding, infection, sepsis, perforation, need for emergent and . She have an ASA of 3. Recommend scopolamine patch 1.5 mg every 72 hour, Compazine rectal suppository, Xanax 0.5 mg 3 times daily and azithromycin 500 mg daily x7 days Charges/Coding Visit Charges Inpatient E&M: 69160 Subs Hosp L3
[2023-04-25 12:09] LABS: Anti-Centromere B Ab <0.2 AI (0.0-0.9); Anti-Chromatin <0.2 AI (0.0-0.9); Anti-Jo <0.2 AI (0.0-0.9); Anti-Scleroderma-70 AB <0.2 AI (0.0-0.9); Anti-dsDNA Ab <1 IU/mL (0-9); RNP Ab <0.2 AI (0.0-0.9); SJOGREN'S Anti-SS-A test < 0.2 AI (0.0-0.9); SJOGREN'S Anti-SS-B test 0.2 AI (0.0-0.9); Smith Ab <0.2 AI (0.0-0.9)
[2023-04-26 16:09] LABS: Albumin 3.5 g/dL (2.9-4.4); Alpha-1-Globulins 0.2 g/dL (0.0-0.4); Alpha-2-Globulins 0.7 g/dL (0.4-1.0); Cytoplasmic Ab (C-ANCA) <1:20 titer (Neg:<1:20); Gamma Globulin 1.2 g/dL (0.4-1.8); Gastrin, Serum 46 pg/mL (0-115); Immunoglobulin A 179 mg/dL (87-352); Immunoglobulin G 1097 mg/dL (586-1602); Immunoglobulin M 245 mg/dL (26-217); PROEL- TOTAL PROTEIN 6.6 g/dL (6.0-8.5); Perinuclear Ab (P-ANCA) <1:20 titer (Neg:<1:20)
== END 2023-04-24 16:58 | disposition home or self-care (01) | DRG 370 ==
LOC: ED 22:39 → PCU 23:15
PROVIDERS: Internal Medicine Gastroenterology; Admitting Provider Internal Medicine; Emergency Provider Emergency Medicine; PCP Internal Medicine; Visit Provider Internal Medicine
PROC: 0DJ08ZZ Inspection of Upper Intestinal Tract, Via Natural or Artificial Opening Endoscopic (ICD-10-PCS; CPT 43235; principal; 2023-04-23 12:10)
DX: K22.6 Gastro-esophageal laceration-hemorrhage syndrome (principal); K29.01 Acute gastritis with bleeding; I10 Essential (primary) hypertension; F32.9 Major depressive disorder, single episode, unspecified; F17.210 Nicotine dependence, cigarettes, uncomplicated; G43.909 Migraine, unspecified, not intractable, without status migrainosus; K29.80 Duodenitis without bleeding; K44.9 Diaphragmatic hernia without obstruction or gangrene; F41.9 Anxiety disorder, unspecified; E66.9 Obesity, unspecified; Z68.32 Body mass index [BMI] 32.0-32.9, adult
CPT/HCPCS: 36415; 74018; 74176; 80053; 80307; 81001; 82271; 82550; 82784; 82941; 83690; 83735; 84100; 84165; 84703; 85014; 85018; 85025; 85610; 85652; 86140; 86225; 86235; 86256; 86334; 86850; 86900; 86901; 88305; 88342; 99285; J7120; A4216; J2405; J3490

== ENCOUNTER 2023-04-26 12:15 | Emergency (ER) | payer SELFPAY ==
[2023-04-26] VITALS (8 sets, daily range): BP systolic 73–223; BP diastolic 48–100; PULSE 45–88; RESP 10–23; TEMP 36.6; O2SAT 94–99; BMI 27.4
--- NOTE | 2023-04-26 12:16 | ED.RN ---
PT'S SON CUSSING THIS PLACE IS A FUCKING JOKE. WHEN ASKED TO STOP CUSSING I DONT FUCKING CARE. ALSO ATTEMPTED TO EXPLAIN IN THE FUTURE NOT TO GO THE WRONG WAY ON THE RAMP I DONT GIVE A GIVE. THAT ALFONSO SIMON.
--- NOTE | 2023-04-26 12:32 | EDS_ITS ---
HPI History of Present Illness Chief Complaint: Abd Pain PFSH PFSH Medical History Back pain Hypertension Migraine headache Mood disorder Tobacco abuse Medical History no medical history Home Medications ondansetron 4 mg disintegrating tablet 4 mg PO Q8H PRN PRN Nausea #10 tabs 04/18/23 [Rx Last Taken Unknown] ondansetron HCl 8 mg tablet 8 mg PO Q8H PRN nausea and vomiting #10 tabs 04/24/23 [Rx Last Taken Unknown] pantoprazole 40 mg tablet,delayed release (Protonix) 40 mg PO DAILY #30 tabs 04/24/23 [Rx Last Taken Unknown] ondansetron 4 mg disintegrating tablet 4 mg PO Q8H PRN nausea and vomiting 3 days #9 tabs 04/26/23 [Rx Last Taken Unknown] Allergy/AdvReac Type Severity Reaction Status Date / Time naproxen AdvReac Nausea Verified 04/26/23 13:11 Social History Smoking Status: Current some day smoker tobacco type: cigarettes alcohol intake: never substance use type: does not use EXAM Physical Exam Const Vital Signs: 04/26/23 12:18 04/26/23 13:17 04/26/23 14:15 Temperature 98 F Temperature Source Temporal Pulse Rate 64 88 Respiratory Rate 14 23 H Blood Pressure 134/89 H 223/100 H 73/48 L Blood Pressure Mean 104 141 56 Pulse Ox 99 97 Oxygen Delivery Method Room Air Room Air Room Air 04/26/23 14:33 04/26/23 14:34 04/26/23 15:18 Temperature Temperature Source Pulse Rate 74 58 L 48 L Respiratory Rate 10 L 12 20 H Blood Pressure 122/48 H 111/57 L 123/60 H Blood Pressure Mean 72 75 81 Pulse Ox 99 97 96 Oxygen Delivery Method Room Air Room Air Room Air MDM MDM MDM Narrative Medical decision making narrative: HISTORY OF PRESENT ILLNESS: 48-year-old female here with abdominal pain nausea vomiting REVIEW OF SYSTEMS: Pertinent positives: Abdominal pain nausea vomiting Pertinent negatives: Syncope PHYSICAL EXAM: Nursing triage notes reviewed, Vital signs reviewed Constitutional: please see mdm HENT: MMM Eyes: Pupils equal round and reactive to light, Extraocular muscles intact Neck: No stridor, no JVD, full neck ROM Lungs: Clear to auscultation, No wheezing or rales. No increased work of breathing, no conversational dyspnea, no accessory muscle use, no nasal flaring. No respiratory distress noted Heart: Regular rate and rhythm, No murmurs, No rubs and No gallops, 2+ distal pulses (radial, femoral, posterior tibial) in all extremities Abdomen: Soft, there is no tenderness, rigidity, rebound or guarding, no obvious peritoneal signs, no palpable pulsatile abdominal masses, no auscultated abdominal bruit : No CVAT Extremities: No edema Neuro: No focal neurological deficits, cranial nerves II through XII intact, 5/5 strength in all extremities. Intact sensation to light touch in all extremities, 2+ reflexes bilateral patella tendons. Normal gait. No ataxia. Skin: No rash or lesions noted MEDICAL DECISION MAKING: Chief Complaint: Abdominal pain External records reviewed: Prior ED visit reviewed. Patient was seen in the ED on 823, 827 and 830 for abdominal pain or GI bleed. Prior imaging studies reviewed CT scan abdomen pelvis from 04/18/2023 shows no acute findings Factors affecting care: Chronic abdominal pain Social determinants of health: none History obtained from others: none Consults: none ALL IMAGES (IF OBTAINED) HAVE BEEN PERSONALLY REVIEWED AND INTERPRETED BY MYSELF. MDM Narrative: F patient was hemodynamically stable, afebrile and nontoxic-appearing. Had diffuse abdominal tenderness. I considered the following differential diagnosis: AAA, small bowel obstruction, abdominal perforation, appendicitis, pancreatitis, hepatobiliary pathology (acute cholecystitis), mesenteric ischemia, CT scan showed no evidence of acute abnormality. No evidence of systemic inflammation, severe anemia, UTI, or hepatobiliary pathology or pancreatitis. No clear life-limiting etiology to be ascertained. The patient is appropriate discharge home. Of note patient had an episode of hypotension after Dilaudid. This resolved with fluids and Trendelenburg positioning. Vitals remained stable she is appropriate for discharge home The patient and/or family, caregivers express understanding. The patient and/or family, caregivers agrees with the plan. Shared decision making: I will have a discussion with the patient and or visitors regarding risk/benefits of further testing or admission. They will be made aware of of the risk/benefits inherent in this decision they will be given the opportunity to voice understanding. Total critical care time today provided was at least 0 minutes. This excludes separately billable procedures. Critical care time (if documented) is secondary to the patient having high probability of clinically significant/life threatening deterioration in the patient's condition which required my urgent intervention. Impression: Abdominal pain, hypokalemia Disposition: Discharge home Lab Data Attestation: I reviewed the patient's lab results. Lab results narrative: CBC without leukocytosis, severe anemia, no thrombocytopenia. BMP without evidence of significant electrolyte abnormalities, no anion gap, no acute kidney injury. Lipase is wnl indicating no pancreatic inflammation. Urinalysis shows no evidence of urinary inflammation suggestive of UTI. Urine test negative. LFTs show no evidence of hepatobiliary pathology. Labs: Laboratory Results - last 24 hr 04/26/23 04/26/23 12:48 13:50 WBC 10.2 RBC 4.69 Hgb 14.7 Hct 43.2 MCV 92.1 MCH 31.3 MCHC 34.0 RDW Std Deviation 46.6 H RDW Coeff of [place]on 13.8 Plt Count 270 MPV 10.0 Immature Gran % (Auto) 0.500 Neut % (Auto) 80.0 H Lymph % (Auto) 13.4 L [place] % (Auto) 5.0 Eos % (Auto) 0.4 Baso % (Auto) 0.7 Absolute Neuts (auto) 8.2 H Absolute Lymphs (auto) 1.37 Nucleated RBC % 0 Sodium 137 Potassium 3.4 L Chloride 107 Carbon Dioxide 22.0 Anion Gap 8 BUN 11 Creatinine 0.92 Estim Creat Clear Calc 65.28 Est GFR (MDRD) Af Amer 84 Est GFR (MDRD) Non-Af 69 BUN/Creatinine Ratio 11.9 Glucose 135 H Calcium 9.4 Total Bilirubin 0.40 Direct Bilirubin 0.07 AST 29 ALT 29 Alkaline Phosphatase 69 Total Protein 8.2 Albumin 3.8 Globulin 4.4 H Lipase 25 Urine Color Yellow Urine Clarity Sl. Cloudy Urine pH 8.0 Ur Specific [place] 1.015 Urine Protein 15 H Urine Glucose (UA) Normal Urine Ketones Negative Urine Occult Blood 50 H Urine Nitrite Negative Urine Bilirubin Negative Urine Urobilinogen Normal Ur Leukocyte Esterase Negative Urine RBC 0-5 SEEN Urine WBC 0 SEEN Ur Squamous Epith Cells 0-5 SEEN Urine Bacteria 1+ Urine Mucus 0 SEEN Urine Test Negative Radiography Diagnostic Testing: Clinical Impression(s) from Imaging Studies Abdomen/Pelvis CT 04/26/23 13:07 IMPRESSION: Stable examination. No acute abnormality is seen. Electronically Signed: Cliff Walker MD at 14:03 EDT , I have personally reviewed the patient's chest x-ray. Chest x-ray is unremarkable for pulmonary edema, pneumothorax, pneumonia or focal cardiopulmonary abnormality. Discharge Plan Triage Chief Complaint: Abd Pain ED Provider: Michele Medrano Dx/Rx/DC Orders Clinical Impression: Abdominal pain Instructions: ED Hypokalemia Prescriptions: New ondansetron 4 mg tablet,disintegrating 4 mg PO Q8H PRN (Reason: nausea and vomiting) 3 Days Qty: 9 0RF No Action ondansetron 4 mg tablet,disintegrating 4 mg PO Q8H PRN PRN (Reason: Nausea) Qty: 10 0RF pantoprazole [Protonix] 40 mg tablet,delayed release (DR/EC) 40 mg PO DAILY Qty: 30 0RF ondansetron HCl 8 mg tablet 8 mg PO Q8H PRN (Reason: nausea and vomiting) Qty: 10 0RF Primary Care Provider: Ashly Doyle Referrals: Ashly Doyle MD [Primary Care Provider] - Activity Restrictions/Additional Instructions: Thank you for trusting us with your care today! Please take Tylenol (2 pills, 650 mg), ibuprofen (2 pills, 400 mg) every 6 hours as needed for pain and fever control. Please take Zofran as needed. Please return to the emergency department if your symptoms change or worsen. Specifically develop worsening abdominal pain, nausea vomiting cannot tolerate food by mouth Please follow with your primary care physician for further outpatient evaluation and management. Disposition Disposition: Home, Self Care
[2023-04-26] MEDS: 0.9% Normal Saline 1,000 ML 1000 ML IV (12:58)
[2023-04-26] MEDS: Ondansetron 4 MG/2 ML Vial IV (12:58)
[2023-04-26 12:59] LABS: Absolute Lymphocyte Count 1.37 X10^3/uL (0.83-4.51); Absolute Neutrophil Count 8.2 X10^3/uL (2.0-7.7); Basophil# 0.07 X10^3/uL; Basophil% 0.7 % (0-1); Eosinophil# 0.04 X10^3/uL; Eosinophils% 0.4 % (0-5); Hematocrit 43.2 % (37-47); Hemoglobin 14.7 g/dL (12.0-15.0); Lymphocyte # 1.37 X10^3/ul (0.83-4.51); Lymphocyte % 13.4 % (19-41); Mean Corpuscular Hgb 31.3 pg (27.0-32.0); Mean Corpuscular Volume 92.1 fL (81-99); Monocyte# 0.51 X10^3/uL; NRBC Flagged by Analyzer 0 % (0-5); Platelet Count 270 K/mm3 (150-450); RBC Distribution Width CV 13.8 % (11.6-14.6); RBC Distribution Width SD 46.6 fl (35.1-43.9); Red Blood Count 4.69 M/mm3 (4.2-5.4); White Blood Count 10.2 K/mm3 (4.4-11.0)
--- NOTE | 2023-04-26 13:07 | CT_ITS ---
STUDY: CT ABDOMEN AND PELVIS WITHOUT CONTRAST REASON FOR EXAM: Female, 48 years old. Abdominal pain and nausea and vomiting. RADIATION DOSAGE (If Supplied By Facility): CTDIvol = ( 16.57 ) mGy, DLP = ( 756.13 ) mGycm TECHNIQUE: Transaxial images were obtained from the dome of the diaphragm to the symphysis pubis without oral contrast, and without intravenous contrast. Sagittal and coronal images were reconstructed. Individualized dose optimization techniques were used for this CT. COMPARISON: Comparison is made with prior study April 22, 2023. FINDINGS: The visualized lung bases are unremarkable. The visualized portions of the heart are within normal limits. Normal liver. There are surgical clips in the gallbladder fossa consistent with a prior cholecystectomy. Normal spleen. Normal pancreas. Normal bilateral adrenal glands. Normal right kidney. Normal left kidney. There is a small hiatal hernia. Normal small intestine. There are scattered colonic diverticula consistent with diverticulosis. The appendix is visualized and appears normal. There is scattered atherosclerotic calcification of the abdominal aorta, without a demonstrated aneurysm. Normal inferior vena cava. Normal retroperitoneum. Normal urinary bladder. Prior ESSURE devices in the fallopian tubes. Normal abdominal wall. Stable grade 1 anterolisthesis of L5 on S1 due to spondylolysis of the pars interarticularis of the L5 vertebrae. CT/Abdomen/Pelvis without Cont IMPRESSION: Stable examination. No acute abnormality is seen. Electronically Signed: Cliff Walker MD at 14:03 EDT ,
[2023-04-26] MEDS: Morphine 4 MG/ML Syringe IV (13:11)
[2023-04-26 13:18] LABS: AST(SGOT) 29 U/L (15-37); Alanine Aminotransfer ALT/SGPT 29 U/L (13-56); Albumin, Serum 3.8 g/dL (3.2-5.0); Alkaline Phosphatase 69 U/L (45-117); Anion Gap 8 (5-15); BUN 11 mg/dL (7-18); BUN/Creat Ratio 11.9 RATIO (10-20); Bilirubin, Direct 0.07 mg/dL (0.00-0.30); Calcium,Total 9.4 mg/dL (8.5-10.1); Chloride 107 mmol/L (98-107); Creatinine, Serum 0.92 mg/dL (0.55-1.02); EST Glomerular Filtration Rate 69 mL/min (>60); Est Glom Filt Rate - Afr Amer 84 mL/min (>60); Estimated Creatinine Clearance 65.28 ml/min; Globulin 4.4 g/dL (2.2-4.2); Glucose 135 mg/dL (74-106); Lipase 25 U/L (13-75); Potassium 3.4 mmol/L (3.5-5.1); Protein, Total 8.2 g/dL (6.4-8.2); Sodium Level 137 mmol/L (136-145)
[2023-04-26] MEDS: HYDROmorphone 0.5 MG/0.5 ML SYRINGE IV (13:52)
[2023-04-26 13:57] LABS: Mucous, Urine 0 SEEN /hpf (<or=2+); White Blood Cells 0 SEEN /hpf (0-5)
[2023-04-26 13:59] LABS: Color, Urine Yellow (Yellow); Glucose, Dipstick Normal (Normal); Ketone-Dipstick Negative (Negative); Leukocyte Esterase-Dipstick Negative /ul (Negative); Nitrite-Dipstick Negative (Negative); Occult Blood-Urine 50 /ul (Negative); Protein-Dipstick 15 mg/dl (Negative); Specific Gravity, Urine 1.015 (1.002-1.030); Urine Bilirubin Dipstick Negative (Negative); Urine Clarity Sl. Cloudy (Clear); Urine Urobilinogen Normal (Normal)
[2023-04-26 14:07] LABS: Bacteria 1+ /hpf (None Seen); Red Blood Cells-Urine 0-5 SEEN /hpf (0-5); Squamous Epithelial Cells - UA 0-5 SEEN /hpf (5-10)
[2023-04-26 14:08] LABS: Internal QC Validated? YES +Cl - CLEAR BKGD; Pregnancy, Urine Negative Negative
== END 2023-04-26 16:29 | disposition home or self-care (01) ==
PROVIDERS: Emergency Provider Emergency Medicine; PCP Internal Medicine; Visit Provider Emergency Medicine
DX: R10.9 Unspecified abdominal pain (principal); I10 Essential (primary) hypertension; E87.6 Hypokalemia; F17.210 Nicotine dependence, cigarettes, uncomplicated
CPT/HCPCS: 74176; 80048; 80076; 81001; 81025; 83690; 85025; 96361; 96374; 96375; 99283; J7030; A4216; J2405

== ENCOUNTER 2023-05-06 10:19 | Emergency (ER) | payer SELFPAY ==
[2023-05-06 10:21] VITALS: BP 118/96; PULSE 95; RESP 18; TEMP 36.1; O2SAT 99; BMI 27.9
[2023-05-06 10:47] LABS: Absolute Lymphocyte Count 1.49 X10^3/uL (0.83-4.51); Absolute Neutrophil Count 9.5 X10^3/uL (2.0-7.7); Basophil# 0.06 X10^3/uL; Basophil% 0.5 % (0-1); Eosinophil# 0.02 X10^3/uL; Eosinophils% 0.2 % (0-5); Hematocrit 45.5 % (37-47); Hemoglobin 15.3 g/dL (12.0-15.0); Lymphocyte # 1.49 X10^3/ul (0.83-4.51); Lymphocyte % 12.8 % (19-41); Mean Corp Hgb Conc 33.6 g/dL (32-36); Mean Corpuscular Hgb 31.3 pg (27.0-32.0); Mean Platelet Vol. 9.9 fl (6.2-12.0); Monocyte% 5.1 % (0-10); NRBC Flagged by Analyzer 0 % (0-5); Neutrophil # 9.47 X10^3/uL (2.7-7.7); Neutrophil % 81.1 % (47-70); Platelet Count 300 K/mm3 (150-450); RBC Distribution Width CV 14.2 % (11.6-14.6); RBC Distribution Width SD 48.4 fl (35.1-43.9); Red Blood Count 4.89 M/mm3 (4.2-5.4); White Blood Count 11.7 K/mm3 (4.4-11.0)
--- NOTE | 2023-05-06 10:47 | EX.ED.DYSGE1 ---
HPI History of Present Illness Chief Complaint: Nausea/Vomiting Informant: patient Narrative Narrative: Patient presents with nausea vomiting and some softer stools again. She has been having this problem for a few weeks. She states normally she just gets bad nausea but if she has a bowel movement or does something else that she does not remember it will get better. She has been seen here several times for this recently. She was admitted. She saw gastroenterology. She had a scope. I reviewed the results of that scope. She had Zara-Grimm tear is along with some gastritis and duodenitis. She has had 3 CAT scans. She has had several sets of blood work. The only abnormality really was seen on the scope and she had cannabis in the urine. She does states she has her medical marijuana card. She smokes a concentrated vape. She has been doing this for a year or so she thinks. She tells me today that she was throwing up blood. I asked her what it look like and she said I do not know. I did look at the emesis that she came in with. It was light nolasco. It was not black it was not bloody at all. She likely has had some intermittent bleeding probably from the Zara-Grimm tear and possibly some from gastritis. She is not on any anticoagulation. Only abdominal surgeries were and tubal ligation. She states she had gallstones but does not know if her gallbladder was taken out. But when I review her recent CAT scan she had no gallbladder and she had clips in that region consistent with prior cholecystectomy. Patient states that she cannot keep her medicines down. She has Zofran oral dissolving tablets. But she states she vomits so they are not staying down. I asked if she is letting the mouth under her tongue. She stated that she is but then she vomits so she is not getting the medicine. She is not able to get her pantoprazole. She is also on Carafate and has not been able to keep that down. She denies fevers. [facility] Medical History Back pain Hypertension Leukocytosis Migraine headache Mood disorder Tobacco abuse Home Medications ondansetron 4 mg disintegrating tablet 4 mg PO Q8H PRN PRN Nausea #10 tabs 04/18/23 [Rx Last Taken Unknown] ondansetron HCl 8 mg tablet 8 mg PO Q8H PRN nausea and vomiting #10 tabs 04/24/23 [Rx Last Taken Unknown] pantoprazole 40 mg tablet,delayed release (Protonix) 40 mg PO DAILY #30 tabs 04/24/23 [Rx Last Taken Unknown] ondansetron 4 mg disintegrating tablet 4 mg PO Q8H PRN nausea and vomiting 3 days #9 tabs 04/26/23 [Rx Last Taken Unknown] prochlorperazine 25 mg rectal suppository (Compro) mg [place] 05/06/23 [History Last Taken Unknown] sucralfate 1 gram tablet 05/06/23 [History Last Taken Unknown] Allergy/AdvReac Type Severity Reaction Status Date / Time naproxen AdvReac Nausea Verified 05/06/23 10:21 Social History Smoking Status: Current some day smoker tobacco type: cigarettes alcohol intake: never substance use type: does not use ROS ROS ED ROS Narrative A complete review of systems was performed and is negative except as documented in the history of present illness. Some specific details below. Constitutional: No recent fevers or chills. EYE: No visual complaints or pain. No change in color ENT: No difficulty swallowing. No swelling. No pain. She does have acid feeling in her throat from recurrent vomiting. CV: No chest pain or palpitations. Respiratory: No dyspnea. No hemoptysis. No difficulty taking breaths. GI: Please see history of present illness. : No frequency dysuria or hematuria. Musculoskeletal: No recent trauma. No pains. Skin: No rash. Nondiaphoretic. Neuro: No weakness or numbness. Endocrine: No polyuria or polydipsia. EXAM Physical Exam Narrative Exam Narrative: CONSTITUTIONAL: Patient is nontoxic in appearance. The patient looks comfortable. HEENT: No notable trauma. Mucous membranes are still moist. No sinus tenderness. No indication of pain with swallowing. No sign of thrush. EYES: No conjunctival injection. No icterus. No proptosis. CARDIOVASCULAR: Regular rate. Regular rhythm. No notable murmur. No JVD. RESPIRATORY: No respiratory distress. Breathing is unlabored. No wheezes. No rhonchi. No rales. No pain with a deep breath. GASTROINTESTINAL: Not distended. Bowel sounds are normal. No focal tenderness. No guarding. No rebound. Patient is variably tender in different areas but is not consistent. If I had to pick 1 area that seems to be more irritated would be the epigastric region. I do not see any skin changes. GENITOURINARY: No tenderness over the bladder. No CVA tenderness. MUSCULOSKELETAL: Atraumatic. No peripheral edema. NEUROLOGICAL: Patient is alert and appropriate. No focal deficit noted. SKIN: No noted rashes. No diaphoresis. PSYCHIATRIC: Patient is a bit anxious. Likely due to her discomfort and vomiting which is certainly been frustrating for her. Const Vital Signs: 05/06/23 10:21 Temperature 96.9 F L Temperature Source Temporal Pulse Rate 95 Respiratory Rate 18 Blood Pressure 118/96 H Blood Pressure Mean 103 Pulse Ox 99 Oxygen Delivery Method Room Air MDM MDM MDM Narrative Medical decision making narrative: Patient CBC shows a minimal nonspecific elevation of the white count. Hemoglobin is minimal elevated. This might be due to to some slight hemoconcentration although her electrolytes do not show significant dehydration. Electrolyte are all unremarkable. Glucose is up to small amount at 147 and this can be followed. Liver function test are normal. Lipase is normal. Lactic acid is normal. Urinalysis shows no sign for damon. Toxicology urine studies do show cannabis. This is expected as she is on medical marijuana. But is explained that this may be contributing to her symptoms. This patient has had an admission, multiple sets of labs, 3 CAT scans, and an upper endoscopy. Were not finding any acute structural pathology as cause of her symptoms. I think this is likely cannabis. We did place capsaicin on her abdomen. She is now complaining of severe pain. But when I talk to her it is burning on the outside. I got her a warm wash rag with water so we can wash this off. That has helped. Patient is tolerating fluids here. I discussed with nurses. She has not had any vomiting. With her negative prior studies, I do not think we need to repeat a fourth CAT scan. Her blood work is normal. She is tolerating fluids. I think we can get her home at this time. Initially I was going to give Thorazine to see if that would help. I was under the understanding that she was having pain and vomiting. But then I find out its only actually skin pain from the capsaicin cream. Therefore this will be canceled. I will give Benadryl as I think it may still provide some benefit for her. Lab Data Attestation: I reviewed the patient's lab results. Labs: Laboratory Results - last 24 hr 05/06/23 05/06/23 05/06/23 10:39 10:43 10:48 WBC 11.7 H RBC 4.89 Hgb 15.3 H Hct 45.5 MCV 93.0 MCH 31.3 MCHC 33.6 RDW Std Deviation 48.4 H RDW Coeff of Samson 14.2 Plt Count 300 MPV 9.9 Immature Gran % (Auto) 0.300 Neut % (Auto) 81.1 H Lymph % (Auto) 12.8 L [place] % (Auto) 5.1 Eos % (Auto) 0.2 Baso % (Auto) 0.5 Absolute Neuts (auto) 9.5 H Absolute Lymphs (auto) 1.49 Nucleated RBC % 0 Sodium 137 Potassium 3.4 L Chloride 105 Carbon Dioxide 26.0 Anion Gap 6 BUN 14 Creatinine 0.84 Estim Creat Clear Calc 71.50 Est GFR (MDRD) Af Amer 93 Est GFR (MDRD) Non-Af 77 BUN/Creatinine Ratio 16.6 Glucose 147 H Lactic Acid 1.0 Calcium 9.7 Total Bilirubin 0.50 AST 17 ALT 26 Alkaline Phosphatase 73 Total Protein 8.3 H Albumin 4.2 Globulin 4.1 Albumin/Globulin Ratio 1.0 Lipase 22 Urine Color Yellow Urine Clarity Clear Urine pH 8.0 Ur Specific [place] 1.015 Urine Protein 30 H Urine Glucose (UA) Normal Urine Ketones 15 H Urine Occult Blood 150 H Urine Nitrite Negative Urine Bilirubin Negative Urine Urobilinogen Normal Ur Leukocyte Esterase 100 H Urine RBC 10-25 SEEN Urine WBC 0-5 SEEN Ur Squamous Epith Cells 5-10 SEEN Urine Bacteria 0 SEEN Urine Mucus 0 SEEN Urine Opiates Screen NEGATIVE Urine Methadone Screen NEGATIVE Ur Barbiturates Screen NEGATIVE Ur Phencyclidine Scrn NEGATIVE Ur Amphetamines Screen NEGATIVE MDMA (Ecstasy) Screen NEGATIVE U Benzodiazepines Scrn NEGATIVE Urine Cocaine Screen NEGATIVE U Cannabinoids Screen POSITIVE H Ur Drug Screen Comment Discharge Plan Triage Chief Complaint: Nausea/Vomiting ED Provider: Esvin Pop Dx/Rx/DC Orders Clinical Impression: Cannabis hyperemesis syndrome concurrent with and due to cannabis abuse, Nausea & vomiting Instructions: Cannabinoid Hyperemesis Syndrome, ED Cyclic Vomiting Syndrome Prescriptions: No Action ondansetron 4 mg tablet,disintegrating 4 mg PO Q8H PRN PRN (Reason: Nausea) Qty: 10 0RF pantoprazole [Protonix] 40 mg tablet,delayed release (DR/EC) 40 mg PO DAILY Qty: 30 0RF ondansetron HCl 8 mg tablet 8 mg PO Q8H PRN (Reason: nausea and vomiting) Qty: 10 0RF ondansetron 4 mg tablet,disintegrating 4 mg PO Q8H PRN (Reason: nausea and vomiting) 3 Days Qty: 9 0RF Primary Care Provider: Ashly Doyle Referrals: Ashly Doyle MD [Primary Care Provider] - Friend,DO Yuan [Med Staff - Active Staff] - As soon as possible Disposition Disposition: Home, Self Care
[2023-05-06 10:58] LABS: Bacteria 0 SEEN /hpf (None Seen); Mucous, Urine 0 SEEN /hpf (<or=2+)
[2023-05-06] MEDS: 0.9% Normal Saline (1000mL) 1,000 ML 1000 ML IV (11:01)
[2023-05-06] MEDS: Ondansetron 4 MG/2 ML Vial IV (11:02)
[2023-05-06 11:03] LABS: Color, Urine Yellow (Yellow); Glucose, Dipstick Normal (Normal); Ketone-Dipstick 15 mg/dl (Negative); Leukocyte Esterase-Dipstick 100 /ul (Negative); Nitrite-Dipstick Negative (Negative); Occult Blood-Urine 150 /ul (Negative); Protein-Dipstick 30 mg/dl (Negative); Specific Gravity, Urine 1.015 (1.002-1.030); Urine Bilirubin Dipstick Negative (Negative); Urine Clarity Clear (Clear); Urine Urobilinogen Normal (Normal)
[2023-05-06 11:05] LABS: AST(SGOT) 17 U/L (15-37); Alanine Aminotransfer ALT/SGPT 26 U/L (13-56); Albumin, Serum 4.2 g/dL (3.2-5.0); Alkaline Phosphatase 73 U/L (45-117); Anion Gap 6 (5-15); BUN 14 mg/dL (7-18); BUN/Creat Ratio 16.6 RATIO (10-20); Calcium,Total 9.7 mg/dL (8.5-10.1); Chloride 105 mmol/L (98-107); Creatinine, Serum 0.84 mg/dL (0.55-1.02); EST Glomerular Filtration Rate 77 mL/min (>60); Est Glom Filt Rate - Afr Amer 93 mL/min (>60); Globulin 4.1 g/dL (2.2-4.2); Glucose 147 mg/dL (74-106); Lipase 22 U/L (13-75); Potassium 3.4 mmol/L (3.5-5.1); Protein, Total 8.3 g/dL (6.4-8.2); Sodium Level 137 mmol/L (136-145)
[2023-05-06 11:09] LABS: Red Blood Cells-Urine 10-25 SEEN /hpf (0-5); Squamous Epithelial Cells - UA 5-10 SEEN /hpf (5-10); White Blood Cells 0-5 SEEN /hpf (0-5)
[2023-05-06 11:24] LABS: Amphetamine Urine VISTA NEGATIVE (<1000 ng/mL); Barbiturate Urine VISTA NEGATIVE (< 200 ng/mL); Benzodiazepine Urine VISTA NEGATIVE (< 200 ng/mL); Cocaine Urine VISTA NEGATIVE (< 300 ng/mL); Ecstacy Urine VISTA NEGATIVE (< 500 ng/mL); Methadone Urine VISTA NEGATIVE (< 300 ng/mL); PCP Urine VISTA NEGATIVE (< 25 ng/mL); THC Urine VISTA POSITIVE (< 50 ng/mL); Vista UDS pH Range 8
[2023-05-06] MEDS: Pantoprazole Sodium 80 MG in 0.9% Normal Saline (50mL Bag) 15 ML 420 MG IV BOLUS (11:43)
[2023-05-06] MEDS: Capsaicin 0.025% 1 APPLIC Tube TOPICAL (11:43)
[2023-05-06] MEDS: DiphenhydrAMINE 50 MG/ML Syringe 25 MG IV (12:22)
[2023-05-06] MEDS: proMETHazine 25 MG/ML Syringe 12.5 MG IM (12:24)
[2023-05-06 12:42] VITALS: BP 109/75; PULSE 62; RESP 15; O2SAT 97
== END 2023-05-06 12:47 | disposition home or self-care (01) ==
PROVIDERS: Emergency Provider Emergency Medicine; PCP Internal Medicine; Visit Provider Emergency Medicine
DX: R11.2 Nausea with vomiting, unspecified (principal); I10 Essential (primary) hypertension; F17.210 Nicotine dependence, cigarettes, uncomplicated; F12.10 Cannabis abuse, uncomplicated
CPT/HCPCS: 80053; 80307; 81001; 83605; 83690; 85025; 96361; 96365; 96372; 96375; 96376; 99283; J7030; A4216; J2405; J3490